=== PATIENT | female | born 1995 | race Caucasian/White ===

== ENCOUNTER 2017-02-12 12:51 | Emergency (ER) | payer OTHER ==
[2017-02-12 12:57] VITALS: BP 117/84
[2017-02-12] MEDS ORDERED: Ibuprofen TAB* 600 MG PO ONE (13:39)
[2017-02-12] MEDS ORDERED: Sulfamethox/Trimethoprim DS 800/160* TAB PO ONE (13:39)
--- NOTE | 2017-02-12 18:47 | ED ---
Tapan Hernandez Auryana, scribed for Jose Duque MD on 02/12/17 at 1314 . Skin Complaint - HPI Summary HPI Summary: 21 year old female presents to the ED with CC of multiple abscess in the right axilla. She reports that she first noticed them little over 1 week ago and they have gotten progressively worse - erythema, and increase in size without coming to a head. She denies any fever and chills. PMHx is not significant for MRSA. SHx is significant for tobacco but denies any alcohol or drug use. - History of Current Complaint Chief Complaint: EDRashSkinAbscess Time Seen by Provider: 02/12/17 13:04 Stated Complaint: ABSCESS Hx Obtained From: Patient Hx Last Menstrual Period: 05/23/15 Onset/Duration: Started Weeks Ago - little over 1 week ago, Still Present, Worse Since - progressively worse Skin Exposure Onset/Duration: Weeks Ago Timing: Constant Onset Severity: Moderate Current Severity: Moderate Pain Intensity: 6 Pain Scale Used: 0-10 Numeric Skin Location: Discrete, Other: - armpit Character: Swelling, Pain, Redness Associated Signs & Symptoms: Negative - no fever or chills - Allergy/Home Medications Allergies/Adverse Reactions: Allergies Allergy/AdvReac Type Severity Reaction Status Date / Time Penicillins Allergy Severe Difficulty Verified 02/12/17 12:54 Breathing,hives PMH/Surg Hx/FS Hx/Imm Hx Previously Healthy: No - cold sores Endocrine/Hematology History: Denies: Hx Diabetes, Hx Thyroid Disease Cardiovascular History: Denies: Hx Hypertension Respiratory History: Reports: Hx Pneumonia - 2 YEARS AGO Denies: Hx Asthma, Hx Chronic Obstructive Pulmonary Disease (COPD) GI History: Denies: Hx Ulcer Sensory History: Reports: Hx Contacts or Glasses Opthamlomology History: Reports: Hx Contacts or Glasses Psychiatric History: Reports: Hx Anxiety, Hx Depression - was taking zoloft, disc. managed by PCP Infectious Disease History: No Infectious Disease History: Denies: Hx Clostridium Difficile, Hx Hepatitis, Hx Human Immunodeficiency Virus (HIV), Hx of Known/Suspected MRSA, Hx Shingles, Hx Tuberculosis, Hx Known/ Suspected VRE, Hx Known/Suspected VRSA, History Other Infectious Disease, Traveled Outside the [place] in Last 30 Days - Family History Known Family History: Positive: Other - mother - history of strep throat Negative: Cardiac Disease Family History: no cardio vascular issues in family lineage - Social History Occupation: Student Lives: With Family Alcohol Use: Occasionally Substance Use Type: Reports: Prescribed Substance Use Comment - Amount & Last Used: 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 GENERAL: Patient is a well-developed and nourished (MALE OR FEMALE) who is lying comfortable in the stretcher. Patient is not in any acute respiratory distress. HEAD AND FACE: No signs of trauma. No ecchymosis, hematomas or skull depressions. No sinus tenderness. EYES: PERRLA, EOMI x 2, No injected conjunctiva, no nystagmus. EARS: Hearing grossly intact. Ear canals and tympanic membranes are within normal limits. MOUTH: Oropharynx within normal limits. NECK: Supple, trachea is midline, no adenopathy, no JVD, no carotid bruit, no c- spine tenderness, neck with full ROM. CHEST: Symmetric, no tenderness at palpation LUNGS: Clear to auscultation bilaterally. No wheezing or crackles. CVS: Regular rate and rhythm, S1 and S2 present, no murmurs or gallops appreciated. ABDOMEN: Soft, non-tender. No signs of distention. No rebound no guarding, and no masses palpated. Bowel sounds are normal. EXTREMITIES: FROM in all major joints, no edema, no cyanosis or clubbing. NEURO: Alert and oriented x 3. No acute neurological deficits. Speech is normal and follows commands. SKIN: Dry and warm, 3 abscesses in the left axilla. Triage Information Reviewed: Yes Vital Signs On Initial Exam: Initial Vitals Temp Pulse Resp BP Pulse Ox 98.6 F 124 18 117/84 6 02/12/17 12:54 02/12/17 12:54 02/12/17 12:54 02/12/17 12:54 02/12/17 12:54 Vital Signs Reviewed: Yes Procedures - Procedure Summary Procedure Summary: 3x Incision and drainage - purulent discharge removed. Packed 3 abscesses with gauze. Patient was given ibuprofen and Bactrim, discharge and follow up with PCP or ED for wound check. - Incision and Drainage Site: left axilla x3 abscesses Anesthesia: Lidocaine - without epi Instrument(s): Other - 11 blade Packing: Gauze Diagnostics - Vital Signs Vital Signs Temp Pulse Resp BP Pulse Ox 02/12/17 12:54 98.6 F 124 18 117/84 6 - Laboratory Lab Statement: Any lab studies that have been ordered have been reviewed, and results considered in the medical decision making process. Course/Dx - Course Course Of Treatment: 21 year old female presents to the ED with CC of multiple abscess in the right axilla. She reports that she first noticed them little over 1 week ago and they have gotten progressively worse - erythema, and increase in size without coming to a head. She denies any fever and chills. PMHx is not significant for MRSA. SHx is significant for tobacco but denies any alcohol or drug use. Assessment/Plan: I&D of 3 abscess at the elft axilla, see MD note. patient was given 1 ibuprofen and bactrim in ED. Patient will be discharge and follow up with PCP or return to for wound check. Given Rx for bactrim and ibuprofen. - Differential Diagnoses - Skin Complaint Differential Diagnoses: Abscess - Diagnoses Provider Diagnoses: Abscess, Cellulitis Discharge - Discharge Plan Condition: Stable Disposition: HOME Prescriptions: Ibuprofen TAB* [Motrin TAB* 600 MG] 600 mg PO Q8H PRN #20 tab PRN Reason: Pain Sulfamethox/Trimethoprim DS* [Bactrim DS 800/160 TAB*] 1 tab PO BID #9 tab Patient Education Materials: Cellulitis (ED), Abscess (ED) Referrals: Salty Sierra MD [Primary Care Provider] - 2 Days (PLEASE FOLLOW UP WITH PCP OR THE EMERGENCY ROOM FOR WOUND CHECK IN 2 DAYS.) The documentation as recorded by the Tapan molina Auryana accurately reflects the service I personally performed and the decisions made by , Jose Duque MD.
--- NOTE | 2017-02-14 16:30 | PN ---
Progress Note - Progress Note Note: Wound culture grew staph aureus. Patient placed on bactrim, Will await sensitivities. Nothing further at this time.
== END 2017-02-12 13:54 | disposition home or self-care (01) ==
LOC: ED 12:51
DX: L02.412 Cutaneous abscess of left axilla (principal); F17.210 Nicotine dependence, cigarettes, uncomplicated
CPT/HCPCS: 10060; 87070; 87077; 87186; 87205; 99282; A9270-GY

== ENCOUNTER 2017-02-14 19:44 | Emergency (ER) | payer OTHER ==
[2017-02-14 20:53] VITALS: BP 135/96
--- NOTE | 2017-02-15 09:08 | PN ---
Progress Note - Progress Note Note: Placed on bactrim which finally cultures shows is sensitive to. no further action needed.
--- NOTE | 2017-02-16 07:39 | ED ---
Daniel Hernandez Alok, scribed for Mirza Slade MD on 02/14/17 at 2043 . ED Suture/Wound Check - HPI Summary HPI Summary: 21F presents to ED to re-check her abscess related wound on her right axilla. Two days ago pt had 3 abscess at the right axilla drained at ED, as well as was prescribed Bactrim. Her wounds appear well-healing and clean. - History Of Current Complaint Chief Complaint: EDRashSkinAbscess Stated Complaint: ABSESS UNDER RT ARM Time Seen by Provider: 02/14/17 20:32 Hx Obtained From: Patient Onset/Duration: Lasting Days, Still Present Severity: Moderate Pain Intensity: 3 Pain Scale Used: 0-10 Numeric Procedure Type: I&D 2 days ago - Allergies/Home Medications Allergies/Adverse Reactions: Allergies Allergy/AdvReac Type Severity Reaction Status Date / Time Penicillins Allergy Severe Difficulty Verified 02/14/17 19:52 Breathing,hives PMH/Surg Hx/FS Hx/Imm Hx Endocrine/Hematology History: Denies: Hx Diabetes, Hx Thyroid Disease Cardiovascular History: Denies: Hx Hypertension Respiratory History: Reports: Hx Pneumonia - 2 YEARS AGO Denies: Hx Asthma, Hx Chronic Obstructive Pulmonary Disease (COPD) GI History: Denies: Hx Ulcer Sensory History: Reports: Hx Contacts or Glasses Opthamlomology History: Reports: Hx Contacts or Glasses Psychiatric History: Reports: Hx Anxiety, Hx Depression - was taking zoloft, disc. managed by PCP Infectious Disease History: No Infectious Disease History: Denies: Hx Clostridium Difficile, Hx Hepatitis, Hx Human Immunodeficiency Virus (HIV), Hx of Known/Suspected MRSA, Hx Shingles, Hx Tuberculosis, Hx Known/ Suspected VRE, Hx Known/Suspected VRSA, History Other Infectious Disease, Traveled Outside the [place] in Last 30 Days - Family History Known Family History: Positive: Other - mother - history of strep throat Negative: Cardiac Disease Family History: no cardio vascular issues in family lineage - Social History Occupation: Student Alcohol Use: Occasionally Substance Use Type: Reports: Prescribed Substance Use Comment - Amount & Last Used: 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 Smoking Status (MU): Light Every Day Tobacco Smoker Have You Smoked in the Last Year: No Review of Systems Negative: Fever Positive: Other - abscess right axilla x3 All Other Systems Reviewed And Are Negative: Yes Physical Exam Triage Information Reviewed: Yes Vital Signs On Initial Exam: Initial Vitals Temp Pulse Resp BP Pulse Ox 97.9 F 105 16 128/80 100 02/14/17 19:45 02/14/17 19:45 02/14/17 19:45 02/14/17 19:45 02/14/17 19:45 Vital Signs Reviewed: Yes Appearance: Positive: Well-Appearing, No Pain Distress Skin: Positive: Other - 3 well-healing, open abscesses, clean at right axilla Head/Face: Positive: Normal Head/Face Inspection Eyes: Positive: Normal ENT: Positive: Normal ENT inspection Neck: Positive: Supple, Nontender Respiratory/Lung Sounds: Positive: Clear to Auscultation, Breath Sounds Present Cardiovascular: Positive: RRR Abdomen Description: Positive: Nontender, Soft Bowel Sounds: Positive: Present Musculoskeletal: Positive: Normal Neurological: Positive: Normal Psychiatric: Positive: Normal, Affect/Mood Appropriate Diagnostics - Vital Signs Vital Signs Temp Pulse Resp BP Pulse Ox 02/14/17 19:50 97.9 F 105 16 128/80 100 02/14/17 19:45 97.9 F 105 16 128/80 100 - Laboratory Lab Statement: Any lab studies that have been ordered have been reviewed, and results considered in the medical decision making process. Course/Dx - Course Course Of Treatment: Ms. Ren's would looked very good. There was still packing in one which was dry and she removed it. - Clinical Impression Provider Diagnoses: Encounter for wound re-check Discharge - Discharge Plan Condition: Stable Disposition: HOME Patient Education Materials: Abscess (ED) Referrals: Salty Sierra MD [Primary Care Provider] - Additional Instructions: Please continue taking your Bactrim The documentation as recorded by the Daniel molina Alok accurately reflects the service I personally performed and the decisions made by me, Mirza Slade MD.
== END 2017-02-14 20:52 | disposition home or self-care (01) ==
LOC: ED 19:44
DX: L02.411 Cutaneous abscess of right axilla (principal); F17.210 Nicotine dependence, cigarettes, uncomplicated
CPT/HCPCS: 99281

== ENCOUNTER 2017-08-24 15:06 | Emergency (ER) | payer OTHER ==
[2017-08-24 15:34] VITALS: BP 112/64
--- NOTE | 2017-08-24 16:47 | UC ---
Skin Complaint HPI - HPI Summary HPI Summary: FIVE DAYS OF SMALL ABSCESS LEFT (ANTERIOR) SHOULDER NEAR ARMPIT. TODAY PATIENT POPPED IT AND A LITTLE PUS CAME OUT. HISTORY OF SAME IN THE PAST. FEVER. NO HISTORY OF MRSA. - History of Current Complaint Chief Complaint: UCSkin Time Seen by Provider: 08/24/17 15:55 Stated Complaint: SOFT TISSUE COMPLAINT Hx Obtained From: Patient Hx Last Menstrual Period: states has IUD in place Onset/Duration: Gradual Onset, Lasting Days, Still Present Skin Exposure Onset/Duration: Days Ago Onset Severity: Mild Current Severity: Mild Pain Intensity: 4 Pain Scale Used: 0-10 Numeric Location: Discrete - LEFT SHOULDER Character: Swelling, Redness, Raised Aggravating Factor(s): Touch Alleviating Factor(s): Nothing Associated Signs & Symptoms: Positive: Drainage, Tenderness Related History: Insect Bite/Sting, Possible Reaction to: Environmental Exposure - Allergy/Home Medications Allergies/Adverse Reactions: Allergies Allergy/AdvReac Type Severity Reaction Status Date / Time Penicillins Allergy Severe Difficulty Verified 08/24/17 15:26 Breathing,hives Home Medications: Home Medications Ibuprofen [Ibuprofen 200 MG] 400 mg PO ONCE 08/24/17 [History Confirmed 08/24/17 ] Review of Systems Constitutional: Negative Skin: Other - SMALL 0.5CM X 0.5CM INDURATED ABSCESS LEFT SHOULDER WITH SURROUNDING ERYTHEMA Eyes: Negative ENT: Negative Respiratory: Negative Cardiovascular: Negative Gastrointestinal: Negative Genitourinary: Negative Motor: Negative Neurovascular: Negative Musculoskeletal: Negative Neurological: Negative Psychological: Negative Is Patient Immunocompromised?: No All Other Systems Reviewed And Are Negative: Yes PMH/Surg Hx/FS Hx/Imm Hx Previously Healthy: Yes - Surgical History Surgical History: None - Family History Known Family History: Positive: None, Other - mother - history of strep throat Negative: Cardiac Disease Family History: no cardio vascular issues in family lineage - Social History Occupation: Unemployed - AT [employer] CURRENTLY Lives: With Family Alcohol Use: None Substance Use Type: Heroin, Prescribed Substance Use Comment - Amount & Last Used: pt from [facility] - entered rehab today. Smoking Status (MU): Light Every Day Tobacco Smoker Amount Used/How Often: 1/2 PPD Have You Smoked in the Last Year: No - Immunization History Most Recent Influenza Vaccination: 2014 Most Recent Tetanus Shot: 2014 Most Recent Pneumonia Vaccination: na Vaccination Up to Date: Yes Physical Exam Triage Information Reviewed: Yes Appearance: Well-Appearing, No Pain Distress, Well-Nourished, Thin Vital Signs: Initial Vital Signs Temp 100.1 F 08/24/17 15:27 Pulse 97 08/24/17 15:27 Resp 18 08/24/17 15:27 BP 112/64 08/24/17 15:27 Pulse Ox 100 08/24/17 15:27 Vital Signs Reviewed: Yes Eye Exam: Normal ENT Exam: Normal ENT: Positive: Normal ENT inspection, Hearing grossly normal, Pharynx normal Dental Exam: Normal Neck exam: Normal Neck: Positive: Supple, Nontender, No Lymphadenopathy Respiratory Exam: Normal Respiratory: Positive: Chest non-tender, Lungs clear, Normal breath sounds, No respiratory distress, No accessory muscle use Cardiovascular Exam: Normal Cardiovascular: Positive: RRR, No Murmur, Pulses Normal Abdominal Exam: Normal Abdomen Description: Positive: Nontender, No Organomegaly Musculoskeletal Exam: Normal Musculoskeletal: Positive: Strength Intact, ROM Intact, No Edema Neurological Exam: Normal Psychological Exam: Normal Skin: Positive: Other - SMALL 0.5CM X 0.5CM INDURATED ABSCESS LEFT SHOULDER WITH SURROUNDING ERYTHEMA Course/Dx - Differential Diagnoses - Skin Complaint Differential Diagnoses: Abscess, Cellulitis - Diagnoses Provider Diagnoses: ABSCESS LEFT SHOULDER Discharge - Discharge Plan Condition: Stable Disposition: HOME Prescriptions: Sulfamethox/Trimethoprim DS* [Bactrim DS 800/160 TAB*] 1 tab PO BID #20 tab Patient Education Materials: Abscess (ED) Referrals: Salty Sierra MD [Primary Care Provider] - Images Front/Back of Body, Lg ([place]): 1 - SMALL 0.5CM X 0.5CM INDURATED ABSCESS LEFT SHOULDER WITH SURROUNDING ERYTHEMA
== END 2017-08-24 16:33 | disposition home or self-care (01) ==
LOC: UCEAST 15:06
DX: L02.414 Cutaneous abscess of left upper limb (principal); B95.62 Methicillin resistant Staphylococcus aureus infection as the cause of diseases classified elsewhere; Z88.0 Allergy status to penicillin; F17.210 Nicotine dependence, cigarettes, uncomplicated
CPT/HCPCS: 87070; 87077; 87186; 87205; 87640; 87641; 99212; G0463

== ENCOUNTER 2017-12-10 21:22 | Emergency (ER) | payer OTHER ==
[2017-12-10 22:29] LABS: Hematocrit 38 % (35-47); Hemoglobin 12.6 g/dl (12.0-16.0); Mean Corpuscular HGB Conc 34 g/dl (31-36); Mean Corpuscular Hemoglobin 29 pg (27-31); Mean Corpuscular Volume 86 fL (80-97); Mean Platelet Volume 7.7 um3 (7.4-10.4); Platelet Count 262 10^3/ul (150-450); Red Blood Count 4.35 10^6/ul (4.0-5.4); Red Cell Distribution Width 14 % (10.5-15); White Blood Count 13.8 10^3/ul (3.5-10.8)
[2017-12-10 22:33] LABS: Urine Appearance Cloudy; Urine Blood 3+ (Negative); Urine Color Yellow; Urine Ketones Negative (Negative); Urine Protein 1+(30 mg/dL) (Negative); Urine Urobilinogen Negative (Negative)
[2017-12-10] MEDS ORDERED: Ciprofloxacin 400MG IVPREMIX(* 400 MG/200 ML BAG IVPB ONE (22:36)
[2017-12-10 22:47] LABS: EGFR Non-African American 82.5 (>60)
[2017-12-10 22:49] LABS: ABS Basophils 0.1 10^3/ul (0-0.2); ABS Eosinophils 0 10^3/ul (0-0.6); ABS Lymphocytes 2.6 10^3/ul (1.0-4.8); ABS Monocytes 1.6 10^3/ul (0-0.8); ABS Neutrophils 9.4 10^3/ul (1.5-7.7); ABS Nucleated RBC 0 10^3/ul; Eosinophil % 0.3 % (0-6); Lymphocyte % 19.1 % (25-47); Nucleated Red Blood Cells % 0.1
--- NOTE | 2017-12-10 22:54 | ED ---
GI/ HPI - HPI Summary HPI Summary: 22-year-old female presents with frequency and flank pain for the past couple days. She states she may have a UTI. She denies any pain urination. Denies any vaginal discharge. States she does have an IUD in place. She states that the pain causes her to become short of breath. She denies any chest pain. She states the pain started in the right flank and now is radiating to the front of her abdomen. She's never had this pain before. She denies any previous abdominal surgeries. She hasn't taking anything for pain. She is to nausea but denies any vomiting. She denies any diarrhea constipation. - History of Current Complaint Chief Complaint: EDFlankPain Time Seen by Provider: 12/10/17 21:42 Stated Complaint: FLANK PAIN Hx Last Menstrual Period: states has IUD in place Pain Intensity: 6 - Allergy/Home Medications Allergies/Adverse Reactions: Allergies Allergy/AdvReac Type Severity Reaction Status Date / Time Penicillins Allergy Anaphylatic Verified 12/10/17 23:56 Shock PMH/Surg Hx/FS Hx/Imm Hx Endocrine/Hematology History: Denies: Hx Diabetes, Hx Thyroid Disease Cardiovascular History: Denies: Hx Hypertension Respiratory History: Reports: Hx Pneumonia - 2 YEARS AGO Denies: Hx Asthma, Hx Chronic Obstructive Pulmonary Disease (COPD) GI History: Denies: Hx Ulcer Sensory History: Reports: Hx Contacts or Glasses Opthamlomology History: Reports: Hx Contacts or Glasses Psychiatric History: Reports: Hx Anxiety, Hx Depression - was taking zoloft, disc. managed by PCP Infectious Disease History: No Infectious Disease History: Denies: Hx Clostridium Difficile, Hx Hepatitis, Hx Human Immunodeficiency Virus (HIV), Hx of Known/Suspected MRSA, Hx Shingles, Hx Tuberculosis, Hx Known/ Suspected VRE, Hx Known/Suspected VRSA, History Other Infectious Disease, Traveled Outside the [place] in Last 30 Days - Family History Known Family History: Positive: None, Other - mother - history of strep throat Negative: Cardiac Disease Family History: no cardio vascular issues in family lineage - Social History Alcohol Use: None Substance Use Type: Reports: Heroin, Prescribed Substance Use Comment - Amount & Last Used: states clean since July 2017 Smoking Status (MU): Light Every Day Tobacco Smoker Amount Used/How Often: 1/2 PPD Have You Smoked in the Last Year: No Review of Systems Negative: Fever Negative: Chest Pain Negative: Shortness Of Breath Positive: Abdominal Pain, Nausea. Negative: Vomiting Positive: frequency, flank pain All Other Systems Reviewed And Are Negative: Yes Physical Exam Triage Information Reviewed: Yes Vital Signs On Initial Exam: Initial Vitals Temp Pulse Resp BP Pulse Ox 97.5 F 97 18 119/70 98 12/10/17 21:25 12/10/17 21:25 12/10/17 21:25 12/10/17 21:25 12/10/17 21:25 Vital Signs Reviewed: Yes Appearance: Positive: Well-Appearing Skin: Positive: Warm, Dry Head/Face: Positive: Normal Head/Face Inspection Eyes: Positive: Normal, EOMI, MERRITT, Conjunctiva Clear ENT: Positive: Normal ENT inspection, Pharynx normal, TMs normal Respiratory/Lung Sounds: Positive: Clear to Auscultation, Breath Sounds Present Cardiovascular: Positive: Normal, RRR Abdomen Description: Positive: Soft, CVA Tenderness (R), Other: - mild tenderness suprapubic. Negative: [place]'s Point Tenderness Bowel Sounds: Positive: Present Musculoskeletal: Positive: Normal Neurological: Positive: Normal Psychiatric: Positive: Normal Diagnostics - Vital Signs Vital Signs Temp Pulse Resp BP Pulse Ox 12/10/17 21:25 97.5 F 97 18 119/70 98 - Laboratory Lab Results: Lab Results 12/10/17 12/10/17 12/10/17 Range/Units 22:20 22:20 22:22 WBC 13.8 H (3.5-10.8) 10^3/ul RBC 4.35 (4.0-5.4) 10^6/ul Hgb 12.6 (12.0-16.0) g/dl Hct 38 (35-47) % MCV 86 (80-97) fL MCH 29 (27-31) pg MCHC 34 (31-36) g/dl RDW 14 (10.5-15) % Plt Count 262 (150-450) 10^3/ul MPV 7.7 (7.4-10.4) um3 Neut % (Auto) 68.2 (38-83) % Lymph % (Auto) 19.1 L (25-47) % [place] % (Auto) 11.9 H (0-7) % Eos % (Auto) 0.3 (0-6) % Baso % (Auto) 0.5 (0-2) % Absolute Neuts (auto) 9.4 H (1.5-7.7) 10^3/ul Absolute Lymphs (auto) 2.6 (1.0-4.8) 10^3/ul Absolute Monos (auto) 1.6 H (0-0.8) 10^3/ul Absolute Eos (auto) 0 (0-0.6) 10^3/ul Absolute Basos (auto) 0.1 (0-0.2) 10^3/ul Absolute Nucleated RBC 0 10^3/ul Nucleated RBC % 0.1 Sodium 133 (133-145) mmol/L Potassium 3.9 (3.5-5.0) mmol/L Chloride 99 L (101-111) mmol/L Carbon Dioxide 26 (22-32) mmol/L Anion Gap 8 (2-11) mmol/L BUN 14 (6-24) mg/dL Creatinine 0.86 (0.51-0.95) mg/dL Est GFR ( Amer) 106.1 (>60) Est GFR (Non-Af Amer) 82.5 (>60) BUN/Creatinine Ratio 16.3 (8-20) Glucose 102 H (70-100) mg/dL Calcium 9.1 (8.6-10.3) mg/dL Total Bilirubin 0.60 (0.2-1.0) mg/dL AST 32 (13-39) U/L ALT 35 (7-52) U/L Alkaline Phosphatase 89 (34-104) U/L C-React Prot High Sens Pending Total Protein 7.5 (6.4-8.9) g/dL Albumin 3.4 (3.2-5.2) g/dL Globulin 4.1 H (2-4) g/dL Albumin/Globulin Ratio 0.8 L (1-3) Lipase 22 (11.0-82.0) U/L Beta HCG, Quant Pending Urine Color Yellow Urine Appearance Cloudy Urine pH 6.0 (5-9) Ur Specific [place] 1.010 (1.010-1.030) Urine Protein 1+(30 mg/dl) A (Negative) Urine Ketones Negative (Negative) Urine Blood 3+ A (Negative) Urine Nitrate Negative (Negative) Urine Bilirubin Negative (Negative) Urine Urobilinogen Negative (Negative) Ur Leukocyte Esterase 3+ A (Negative) Urine WBC (Auto) 3+(>20/hpf) A (Absent) Urine RBC (Auto) 3+(>10/hpf) A (Absent) Ur Squamous Epith Cells Present A (Absent) Amorphous Crystals Present A (Absent) Urine Bacteria 3+ A (Absent) Urine Glucose Negative (Negative) Result Diagrams: 12/10/17 22:20 12/10/17 22:20 Lab Statement: Any lab studies that have been ordered have been reviewed, and results considered in the medical decision making process. - CT cta CT Interpretation: Positive (See Comments) - right renal inflammation, no PE CT Interpretation Completed By: Radiologist - Ultrasound No standard instances Ultrasound Interpretation: No Acute Changes Ultrasound Interpretation Completed By: Radiologist ELIZABETHU Course/Dx - Course Course Of Treatment: 22-year-old female presents with frequency and flank pain for the past couple days. She states she may have a UTI. She denies any pain urination. Denies any vaginal discharge. States she does have an IUD in place. She states that the pain causes her to become short of breath. She denies any chest pain. She states the pain started in the right flank and now is radiating to the front of her abdomen. She's never had this pain before. She denies any previous abdominal surgeries. She hasn't taking anything for pain. She is to nausea but denies any vomiting. She denies any diarrhea constipation. On exam tenderness suprapubic and right CVA tenderness. Labs white count 13. Urine shows UTI. We'll treat with Cipro. d-dimer elevated so will get CT. renal u/s normal. CTA shows no PE but does show pyelo. will discharge with zofran and cipro. patient understand and agrees with plan. - Diagnoses Differential Diagnoses - Female: Pyelonephritis, Urinary Tract Infection, Ureteral Calculi, Other - PE Provider Diagnoses: Pyelonephritis Discharge - Sign-Out/Discharge Documenting (check all that apply): Discharge - Discharge Plan Condition: Good Disposition: HOME Prescriptions: Ciprofloxacin TAB* [Cipro 500 MG TAB*] 500 mg PO BID #27 tab Ondansetron ODT TAB* [Zofran 4 MG Odt TAB*] 4 mg PO Q6H PRN #16 tab.odt PRN Reason: Nausea Patient Education Materials: Kidney Infection (ED) Referrals: Salty Sierra MD [Primary Care Provider] - Additional Instructions: Take antibiotic twice a day for 14 days, starting tomorrow Use Zofran every 6 hours for nausea as needed Drink plenty of water Use alternative form of control Take Tylenol or ibuprofen every 6 hours as needed for pain and fever Return to ED if develop severe vomiting, or any new or worsening symptoms - Billing Disposition and Condition Condition: GOOD Disposition: HOME
[2017-12-10] MEDS ORDERED: Iohexol 350* (CONTRAST) 500 ML MDV IV ONE (23:18)
[2017-12-11] MEDS ORDERED: O ndansetron ODT 4MG 2TAB PRPK 4 MG PAK PO ONE (01:05)
[2017-12-11 01:22] VITALS: BP 121/84
--- NOTE | 2017-12-11 07:51 | RAD ---
HISTORY: Right flank pain COMPARISONS: None TECHNIQUE: Multiple transverse and longitudinal ultrasound images were obtained of the right kidney using grayscale and color Doppler imaging. FINDINGS: RIGHT KIDNEY: The right kidney is normal in shape, size, contour, and echogenicity. There is no hydronephrosis or nephrolithiasis. The right kidney measures 13.7 x 6.4 x 5.7 cm. LEFT KIDNEY: No images is noted of the left kidney. BLADDER: No images are submitted of the bladder. AORTA AND IVC: No images are submitted of the vasculature. RETROPERITONEUM: Unremarkable. OTHER: None. IMPRESSION: NO RIGHT HYDRONEPHROSIS OR NEPHROLITHIASIS
--- NOTE | 2017-12-11 07:59 | RAD ---
HISTORY: Shortness of breath, right flank pain COMPARISONS: None TECHNIQUE: Multiple contiguous axial CT scans were obtained of the chest, abdomen, and pelvis after the administration of intravenous contrast. Coronal and sagittal multiplanar reformations are submitted for review.. Oral contrast was not administered. Delayed images were obtained through the abdomen and pelvis. FINDINGS: CHEST NECK AND THYROID: The lower neck and thyroid are unremarkable. CHEST WALL: There is no lower cervical, axillary, or supraclavicular lymphadenopathy by size criteria. HEART AND PERICARDIUM: The heart is unremarkable. AORTA AND PULMONARY VASCULATURE: There is no pulmonary arterial filling defect to suggest pulmonary embolism. The aorta is normal for technique. MEDIASTINUM: There is no mediastinal lymphadenopathy by size criteria. KHANH: There is no hilar lymphadenopathy by size criteria. AIRWAY AND ESOPHAGUS: The airway is unremarkable, without endobronchial filling defect. The esophagus is grossly normal. LUNG PARENCHYMA: The lungs are clear. PLEURA: No pleural abnormalities are noted. BONES AND SOFT TISSUES: No bone or soft tissue abnormalities are noted. ABDOMEN/PELVIS: LIVER: Liver measures 19 cm in long axis. There are no focal hepatic parenchymal masses. BILE DUCTS: There is no intrahepatic or extrahepatic biliary dilatation. GALLBLADDER: The gallbladder is incompletely distended but is grossly normal. PANCREAS: The pancreas is normal, without mass or ductal dilatation. SPLEEN: Normal in size and appearance. UPPER GI TRACT: Evaluation of the gastrointestinal tract is limited by incomplete gastric distention. The upper GI tract is unremarkable. SMALL BOWEL & MESENTERY: The small bowel is normal in contour, course, and caliber. There is no obstruction or dilatation. COLON: The colon is normal in contour, course, caliber. There is no pericolonic inflammatory change. There is large amount of stool throughout the colon. The appendix is not well-visualized. There is no appreciable inflammatory change within the right lower quadrant. ADRENALS: Normal bilaterally. KIDNEYS: There is a heterogeneous pattern of enhancement within the medial right kidney with mild stranding of the perinephric fat on the right. There is no hydronephrosis or nephrolithiasis. BLADDER: The bladder is smooth in contour. PELVIC ORGANS: An IUD is noted. The uterus is retroverted. AORTA: The aorta is normal. IVC: Unremarkable LYMPH NODES: There is no lymphadenopathy by size criteria. ABDOMINAL WALL: There is no evidence for abdominal wall hernia. BONES AND SOFT TISSUES: Unremarkable OTHER: None IMPRESSION: 1. RIGHT PYELONEPHRITIS. 2. NO PULMONARY ARTERIAL FILLING DEFECT TO SUGGEST PULMONARY EMBOLISM.
--- NOTE | 2017-12-13 09:35 | ED ---
Progress - Progress Note Progress Note: Patient's preliminary urine culture reveals greater than 100,000 Escherichia coli. Patient was started on ciprofloxacin. Final sensitivities pending. Course/Dx - Course Course Of Treatment: 22-year-old female presents with frequency and flank pain for the past couple days. She states she may have a UTI. She denies any pain urination. Denies any vaginal discharge. States she does have an IUD in place. She states that the pain causes her to become short of breath. She denies any chest pain. She states the pain started in the right flank and now is radiating to the front of her abdomen. She's never had this pain before. She denies any previous abdominal surgeries. She hasn't taking anything for pain. She is to nausea but denies any vomiting. She denies any diarrhea constipation. On exam tenderness suprapubic and right CVA tenderness. Labs white count 13. Urine shows UTI. We'll treat with Cipro. d-dimer elevated so will get CT. renal u/s normal. CTA shows no PE but does show pyelo. will discharge with zofran and cipro. patient understand and agrees with plan. - Diagnoses Provider Diagnoses: Pyelonephritis Discharge - Sign-Out/Discharge Documenting (check all that apply): Post-Discharge Follow Up - Discharge Plan Condition: Good Disposition: HOME Prescriptions: Ciprofloxacin TAB* [Cipro 500 MG TAB*] 500 mg PO BID #27 tab Ondansetron ODT TAB* [Zofran 4 MG Odt TAB*] 4 mg PO Q6H PRN #16 tab.odt PRN Reason: Nausea Patient Education Materials: Kidney Infection (ED) Referrals: Salty Sierra MD [Primary Care Provider] - Additional Instructions: Take antibiotic twice a day for 14 days, starting tomorrow Use Zofran every 6 hours for nausea as needed Drink plenty of water Use alternative form of control Take Tylenol or ibuprofen every 6 hours as needed for pain and fever Return to ED if develop severe vomiting, or any new or worsening symptoms - Billing Disposition and Condition Condition: GOOD Disposition: HOME
== END 2017-12-11 01:21 | disposition home or self-care (01) ==
LOC: ED 21:22
DX: N12 Tubulo-interstitial nephritis, not specified as acute or chronic (principal); R10.84 Generalized abdominal pain; R11.0 Nausea; F17.210 Nicotine dependence, cigarettes, uncomplicated
CPT/HCPCS: 36415; 71275; 74177; 76775; 80053; 81003; 81015; 83690; 84702; 85025; 85379; 86141; 87077; 87086; 87186; 96365; 99282; A9270-GY; J0744; Q9967

== ENCOUNTER 2018-07-18 09:37 | Emergency (ER) | payer OTHER ==
--- OUTSIDE RECORDS SUMMARY | 2018-07-18 09:49 | XMS REPORT ---
:1995 External Reference #:[id number] Author Organization [facility] Address [address], [address] [place] [address] Phone [phone] Care Team Providers Name Role Phone Amina Quintanilla PA-C Care Team Information Avionics Installer Unavailable Amina Quintanilla PA-C Primary Care Physician Unavailable Payers Type Date Identification Numbers Payment Provider Subscriber Commercial Policy Number: [id number] Kong Ren PayID: [id number] [address] [address] [place] [address] Problems Date Description Provider Status Onset: 06/14/2018 Disorder of bursa of shoulder region Shu Mojica PA Active Social History Type Date Description Comments Lives With Alone Occupation Unemployed Hand Dominance Left-handed Cigarette Use currently smokes 1/2 Pack Daily ETOH Use Has consumed alcohol in the past Recreational Drug Use Former Drug User Smoking Heavy tobacco smoker (more than 10 cigarettes/day) Daily Caffeine Current Caffeine User Allergies, Adverse Reactions, Alerts Date Description Reaction Status Severity Comments 06/14/2018 Penicillin active Medications Medication Date Status Form Strength Qnty SIG Indications Ordering Provider Suboxone Active Film 12-3mg Place One Unknown 000 Film Under The Tongue Every Day Maximum Daily Dose [address] 60mg Take One Unknown 000 Part Capsule By Mouth Every Day Clonidine HCL Active Tablets 0.1mg Take One Unknown 000 Tablet By Mouth Twice A Day Trazodone HCL 0 Active Tablets 100mg Take 2 Unknown 000 Tablets By Mouth Nightly AT Bedtime as Needed Gabapentin Active Capsules 300mg 1 by mouth Unknown 000 every day Hydroxyzine Active Tablets 50mg 30tabs 1 tab by Unknown HCL 000 mouth at night as needed for anxiety and insomnia Bupropion HCL Active Tablets ER 150mg 30tabs 1 by mouth Unknown ER (XL) 000 24HR every day Fish Oil Active Capsules 1000mg 90caps by mouth Unknown 000 every day Dok Active Capsules 100mg 60caps take one Unknown 000 capsule by mouth twice a day as needed Doxepin HCL Active Capsules 10mg 30caps take one Unknown 000 at night Medications Administered in Office Medication Date Status Form Strength Qnty SIG Indications Ordering Provider Depomedrol 80 Administered Injection Yunior, mg 018 ILANA [place] Depomedrol 80 Administered Injection Yunior, mg 018 ILANA [place] Vital Signs Date Vital Result Comment 06/14/2018 BP Systolic 104 mmHg BP Diastolic 68 mmHg Body Temperature 98.2 F Heart Rate 84 /min Height 66 inches 5'6" Weight 150.00 lb BMI (Body Mass Index) 24.2 kg/m2 BSA (Body Surface Area) 1.77 m2 [place] body weight in kilograms 59 O2 % BldC Oximetry 99 % Pain Level 3 Results Description No Information Procedures Date CPT Code Description Status 06/14/2018 56923 Radiology, Shoulder: Two Views (Sso) Completed 06/14/2018 Asp./Injection major joint Completed 06/14/2018 Asp./Injection major joint Completed Encounters Type Date Location Provider CPT E/M Dx Office Visit 06/14/2018 11:15[place] [address] M25.512 M25.511 M75.52 M75.51 Plan of Care Future Appointment(s):07/26/2018 11:00 am - Shu Mojica PA at [id number]/14/2018 - Shu Mojica PAM25.512 Pain in left [id number] Pain in right shoulderFollow up:6wkM75.52 Bursitis of left shoulderNew Therapy: Physical/Occupational TherapyComments:I have recommended physical therapy as well as repeat steroid injection as she has done well with this in the past. Patient does wish to proceed. Verbal consent was obtained to inject both shoulders. Patient was injected today into the left shoulder with 80 mg Depo- Medrol and 4 cc of 1% lidocaine after sterile prep with chlorhexidine. Patient tolerated the injection well and was dressed with a Band-Aid. Patient was injected today into the right shoulder with 80 mg Depo-Medrol and 4 cc of 1% lidocaine after sterile prep with chlorhexidine. Patient tolerated the injection well and was dressed with a Band-Aid. Recheck 4-6 weeks.M75.51 Bursitis of right shoulderNew Therapy:Physical/Occupational Therapy
[2018-07-18 09:59] VITALS: BP 112/71
--- NOTE | 2018-07-18 10:50 | ED ---
Nausea/Vomiting/Diarrhea HPI - HPI Summary HPI Summary: 23-year-old female presents with 2 day history of nausea, vomiting, suprapubic discomfort, dysuria, and right flank pain. Associated with a subjective fever and chills. Last episode of vomiting was yesterday. Denies chest pain, palpitations, shortness of breath, diarrhea, or vaginal discharge. Patient does not have a routine menses secondary to Mirena. - History of Current Complaint Chief Complaint: UCGeneralIllness Stated Complaint: VOMITING,LOW FEVER Time Seen by Provider: 07/18/18 10:11 Hx Obtained From: Patient Hx Last Menstrual Period: unknown, Mirena ?: No Onset/Duration: Gradual Onset, Lasting Days - 2 Severity Currently: Mild Pain Intensity: 4 Character: Burning Aggravating Factor(s): Other: - With urination Alleviating Factor(s): Nothing Vomiting Characteristics: Nonbilious - Allergies/Home Medications Allergies/Adverse Reactions: Allergies Allergy/AdvReac Type Severity Reaction Status Date / Time Penicillins Allergy Anaphylatic Verified 07/18/18 09:53 Shock Home Medications: Home Medications Buprenorp/Nalox 8-2 MG SL TAB [Suboxone 8-2 mg SL TAB*] 10 mg SL DAILY 07/18/18 [History Confirmed 07/18/18] Gabapentin CAP(*) [Neurontin 300 CAP(*)] 300 mg PO TID 07/18/18 [History Confirmed 07/18/18] buPROPion SR TAB* [Wellbutrin SR TAB*] 150 mg PO DAILY 07/18/18 [History Confirmed 07/18/18] traZODone TAB* [Desyrel TAB*] 100 mg PO BEDTIME 07/18/18 [History Confirmed ] PMH/Surg Hx/FS Hx/Imm Hx Previously Healthy: Yes Endocrine/Hematology History: Denies: Hx Diabetes, Hx Thyroid Disease Cardiovascular History: Denies: Hx Hypertension Respiratory History: Reports: Hx Pneumonia - 2 YEARS AGO Denies: Hx Asthma, Hx Chronic Obstructive Pulmonary Disease (COPD) GI History: Denies: Hx Ulcer History: Denies: Hx Renal Disease Sensory History: Reports: Hx Contacts or Glasses Opthamlomology History: Reports: Hx Contacts or Glasses Psychiatric History: Reports: Hx Anxiety, Hx Depression - was taking zoloft, disc. managed by PCP, Hx Substance Abuse Infectious Disease History: No Infectious Disease History: Denies: Hx Clostridium Difficile, Hx Hepatitis, Hx Human Immunodeficiency Virus (HIV), Hx of Known/Suspected MRSA, Hx Shingles, Hx Tuberculosis, Hx Known/ Suspected VRE, Hx Known/Suspected VRSA, History Other Infectious Disease, Traveled Outside the [place] in Last 30 Days - Family History Known Family History: Positive: None, Other - mother - history of strep throat Negative: Cardiac Disease Family History: no cardio vascular issues in family lineage - Social History Alcohol Use: None Substance Use Type: Reports: Prescribed Substance Use Comment - Amount & Last Used: clean since december 30, 2017 Smoking Status (MU): Light Every Day Tobacco Smoker Type: Cigarettes Amount Used/How Often: 1/2 PPD Have You Smoked in the Last Year: No Review of Systems Positive: Fever, Chills ENT: Negative Cardiovascular: Negative Respiratory: Negative Positive: Abdominal Pain, Vomiting, Nausea Positive: burning, flank pain. Negative: discharge, frequency, hematuria, urgency All Other Systems Reviewed And Are Negative: Yes Physical Exam Triage Information Reviewed: Yes Vital Signs On Initial Exam: Initial Vitals Temp Pulse Resp BP Pulse Ox 97.7 F 84 14 112/71 98 07/18/18 09:50 07/18/18 09:50 07/18/18 09:50 07/18/18 09:50 07/18/18 09:50 Vital Signs Reviewed: Yes Appearance: Positive: No Pain Distress, Well-Nourished Skin: Positive: Warm, Skin Color Reflects Adequate Perfusion, Dry Respiratory/Lung Sounds: Positive: Clear to Auscultation, Breath Sounds Present Cardiovascular: Positive: RRR, S1, S2. Negative: Murmur Abdomen Description: Positive: No Organomegaly, Soft, CVA Tenderness (R), Other : - Mild suprapubic tenderness. Negative: CVA Tenderness (L), Distended, Guarding Bowel Sounds: Positive: Present Neurological: Positive: Alert, Oriented to Person Place, Time Psychiatric: Positive: Normal Diagnostics - Vital Signs Vital Signs Temp Pulse Resp BP Pulse Ox 07/18/18 09:50 97.7 F 84 14 112/71 98 - Laboratory Lab Results: Lab Results 07/18/18 07/18/18 Range/Units 10:08 10:15 POC Urine Color Bia POC Urine Clarity Clear POC Urine pH 6.0 (5-9) POC Ur Specif [place] 1.015 (1.010-1.030) POC Urine Protein 2+ A (Negative) POC Ur Glucose (UA) Negative (Negative) POC Urine Ketones Negative (Negative) POC Urine Blood 2+ A (Negative) POC Urine Nitrite Positive A (Negative) POC Urine Bilirubin 1+ A (Negative) POC Urine Urobilinogen 0.2 (Negative) POC U Leukocyte Esteras 2+ A (Negative) POC Ur Test Negative (Negative) Lab Statement: Any lab studies that have been ordered have been reviewed, and results considered in the medical decision making process. Naus/Vom/Diarrhea Course/Dx - Course Course Of Treatment: 23-year-old female with 2 day history of nausea, vomiting, suprapubic discomfort, dysuria associated with subjective fever and chills. Currently afebrile. Vital signs stable. Exam was notable for some suprapubic tenderness and right CVA tenderness. POC UA shows 2+ protein, 2+ blood, positive nitrite, 1+ urobilirubin, 2+ leukocytes. With reports of fever and right CVA tenderness suspect a pyelonephritis however cannot fully rule out nephrolithiasis. Will treat with ciprofloxacin 500 mg twice a day 5 days. Patient is to follow-up with her primary care provider in 5-7 days or sooner if symptoms do not improve. Warning symptoms were reviewed with the patient. Verbalizes understanding and agrees with plan of care. - Differential Dx/Diagnosis Differential Diagnoses - Female: Ectopic , Renal Colic, Urinary Tract Infection, Gastroenteritis (Viral), Cystitis, Renal Calculi Provider Diagnoses: right pyelonpehritis Condition At Discharge: Stable Discharge - Sign-Out/Discharge Documenting (check all that apply): Patient Departure All imaging exams completed and their final reports reviewed: No Studies - Discharge Plan Condition: Stable Disposition: HOME Prescriptions: Ciprofloxacin TAB* [Cipro 500 MG TAB*] 500 mg PO BID #10 tab Patient Education Materials: Kidney Infection (ED) Referrals: Amina Quintanilla PA [Primary Care Provider] - 7 Days (Follow up in 5-7 days. Sooner if symptoms do not improve.) Additional Instructions: Your urine test in the clinic today was suggestive of a urinary tract infection. Based on your history and exam I suspect you may have a kidney infection. We will send the urine for culture to see what bacteria grow out and to make sure that the antibiotic you were prescribed is effective against the bacteria. It typically takes 48-72 hours to get these results. Start ciprofloxacin 500 mg 1 tablet twice a day for 5 days. Make sure you're drinking plenty of fluids. Make sure you are using the bathroom frequently and emptying her bladder completely each time. Wipe from front to back to avoid introducing bacteria into the urinary tract. You should urinate immediately after any sexual intercourse. Follow-up with your primary care provider if your symptoms persist. Seek immediate medical attention in the emergency room if you develop a fever greater than 100.5 F, have severe abdominal pain, persistent vomiting, or any worsening of symptoms. - Billing Disposition and Condition Condition: STABLE Disposition: Home - Attestation Statements Provider Attestation: I was available for consult. This patient was seen by the GILBERTO. The patient was not presented to, seen by, or examined by me. -Kristi
--- NOTE | 2018-07-20 08:04 | ED ---
Progress - Progress Note Progress Note: Ucx- Ecoli>100k pt on cipro await cx Course/Dx - Course Course Of Treatment: 23-year-old female with 2 day history of nausea, vomiting, suprapubic discomfort, dysuria associated with subjective fever and chills. Currently afebrile. Vital signs stable. Exam was notable for some suprapubic tenderness and right CVA tenderness. POC UA shows 2+ protein, 2+ blood, positive nitrite, 1+ urobilirubin, 2+ leukocytes. With reports of fever and right CVA tenderness suspect a pyelonephritis however cannot fully rule out nephrolithiasis. Will treat with ciprofloxacin 500 mg twice a day 5 days. Patient is to follow-up with her primary care provider in 5-7 days or sooner if symptoms do not improve. Warning symptoms were reviewed with the patient. Verbalizes understanding and agrees with plan of care. Discharge - Sign-Out/Discharge Documenting (check all that apply): Patient Departure All imaging exams completed and their final reports reviewed: No Studies - Discharge Plan Condition: Stable Disposition: HOME Prescriptions: Ciprofloxacin TAB* [Cipro 500 MG TAB*] 500 mg PO BID #10 tab Patient Education Materials: Kidney Infection (ED) Referrals: Amina Quintanilla PA [Primary Care Provider] - 7 Days (Follow up in 5-7 days. Sooner if symptoms do not improve.) Additional Instructions: Your urine test in the clinic today was suggestive of a urinary tract infection. Based on your history and exam I suspect you may have a kidney infection. We will send the urine for culture to see what bacteria grow out and to make sure that the antibiotic you were prescribed is effective against the bacteria. It typically takes 48-72 hours to get these results. Start ciprofloxacin 500 mg 1 tablet twice a day for 5 days. Make sure you're drinking plenty of fluids. Make sure you are using the bathroom frequently and emptying her bladder completely each time. Wipe from front to back to avoid introducing bacteria into the urinary tract. You should urinate immediately after any sexual intercourse. Follow-up with your primary care provider if your symptoms persist. Seek immediate medical attention in the emergency room if you develop a fever greater than 100.5 F, have severe abdominal pain, persistent vomiting, or any worsening of symptoms. - Billing Disposition and Condition Condition: STABLE Disposition: Home
== END 2018-07-18 11:05 | disposition home or self-care (01) ==
LOC: UCCORT 09:37
DX: N12 Tubulo-interstitial nephritis, not specified as acute or chronic (principal); R50.9 Fever, unspecified; R11.2 Nausea with vomiting, unspecified; R30.0 Dysuria; F17.210 Nicotine dependence, cigarettes, uncomplicated; Z97.5 Presence of (intrauterine) contraceptive device; Z88.0 Allergy status to penicillin
CPT/HCPCS: 81003; 84702; 87077; 87086; 87186; 99212; G0463

== ENCOUNTER 2018-12-02 15:24 | Emergency (ER) | payer OTHER ==
[2018-12-02 15:41] VITALS: BP 107/70
--- NOTE | 2018-12-02 16:37 | UC ---
FLU HPI - HPI Summary HPI Summary: 23 y/o female presents to the urgent care c/o dry cough, body aches, fever, mild BOOGIE, subjective fever at home for the past 3 days. Pt has not taking anything to alleviate symptoms. He has been drinking fluids, eating well, urinating well w/ normal BM. Pt reports she was Dx with Hep C last year and since she has been in and out of rehab form drug abuse she hasn't been able to f /u well with her PCP. She made an appt w Dr Watson and got an appt only until 2018. Last night her cough was worse. Pt denies SOB, wheezing, dizziness, chest pain, abdominal pain, N/V/d. - History of Current Complaint Chief Complaint: UCRespiratory Stated Complaint: FEVER, COUGH, AND CHILLS Time Seen by Provider: 12/02/18 16:34 Hx Obtained From: Patient Hx Last Menstrual Period: IUD ?: No Onset/Duration: Gradual Onset, Lasting Days - 3 days, Still Present, Worse Since - last night Severity Currently: Mild Severity Initially: Moderate Pain Intensity: 2 Pain Scale Used: 0-10 Numeric Associated Signs & Symptoms: Positive: Myalgia, Cough - dry, Sore Throat - mild , Nasal Congestion - clear, Headache - mild Related Hx: Possible Flu/Infectious Exposure - Risk Factors Influenza Risk Factors: Negative - Allergy/Home Medications Allergies/Adverse Reactions: Allergies Allergy/AdvReac Type Severity Reaction Status Date / Time Penicillins Allergy Anaphylatic Verified 12/02/18 15:41 Shock Home Medications: Home Medications Doxepin HCl 1 tab PO DAILY 12/02/18 [History Confirmed 12/02/18] cloNIDine TAB* [Catapres 0.1 MG TAB*] 1 tab PO BID 12/02/18 [History Confirmed 12/02/18] PMH/Surg Hx/FS Hx/Imm Hx Previously Healthy: Yes Endocrine History: Diabetes - gestetational DM II Respiratory History: Asthma - as a child Other History Of: Hepatitis C - Dx in 89 - Surgical History Surgical History: None - Family History Known Family History: Positive: None, Other - mother - history of strep throat Negative: Cardiac Disease Family History: no cardio vascular issues in family lineage - Social History Occupation: Unemployed Lives: With Family Alcohol Use: None Substance Use Type: Prescribed Substance Use Comment - Amount & Last Used: clean since december 30, 2017 Smoking Status (MU): Light Every Day Tobacco Smoker Type: Cigarettes Amount Used/How Often: 1/2 PPD Have You Smoked in the Last Year: No - Immunization History Most Recent Influenza Vaccination: 2014 Most Recent Tetanus Shot: 2014 Most Recent Pneumonia Vaccination: na Vaccination Up to Date: Yes Review of Systems All Other Systems Reviewed And Are Negative: Yes Constitutional: Positive: Fever, Chills, Fatigue, Other - body aches Skin: Positive: Negative Eyes: Positive: Negative ENT: Positive: Sore Throat, Nasal Discharge - clear, Sinus Congestion Respiratory: Positive: Cough - dry Cardiovascular: Positive: Negative Gastrointestinal: Positive: Negative Genitourinary: Positive: Negative Motor: Positive: Negative Neurovascular: Positive: Negative Musculoskeletal: Positive: Myalgia Neurological: Positive: Headache - mild Psychological: Positive: Negative Is Patient Immunocompromised?: No Physical Exam - Summary Physical Exam Summary: VITAL SIGNS: Reviewed. GENERAL: Patient is a well developed and nourished female who is sitting comfortable in the examining table. Patient is not in any acute respiratory distress. HEAD AND FACE: No signs of trauma. No ecchymosis, hematomas or skull depressions. No sinus tenderness. EYES: PERRLA, EOMI x 2, No injected conjunctiva, no nystagmus. No photophobia. EARS: Hearing grossly intact. Ear canals and tympanic membranes are within normal limits. Nose: edematous and erythematous nasal mucosa w/ clear nasal discharge. MOUTH: Positive no erythema, no tonsillar enlargement. Uvula in midline. NECK: Supple, trachea is midline, Positive anterior cervical lymphadenopathy, no JVD, no carotid bruit, no c-spine tenderness, neck with full ROM. No meningeal signs, no Kernig's or brudzinskis signs. Respiratory: no orthopnea or dyspnea. Able to speak in full sentences, no retractions or accessory muscle use, no tripod position, stridor, or head bobbing. Positive breath sounds bilaterally. B/L posterior upper lungs w/ mild scattered rhonchi, no wheezing, no crackles or rales. CVS: Regular rate and rhythm, S1 and S2 present, no murmurs or gallops appreciated. ABDOMEN: Soft, non-tender. No signs of distention. No rebound no guarding, and no masses palpated. Bowel sounds are normal. EXTREMITIES: FROM in all major joints, no edema, no cyanosis or clubbing. NEURO: Alert and oriented x 3. No acute neurological deficits. Speech is normal and follows commands. SKIN: Dry and warm Triage Information Reviewed: Yes Vital Signs: Initial Vital Signs Temp 98.3 F 12/02/18 15:38 Pulse 84 12/02/18 15:38 Resp 12 12/02/18 15:38 BP 107/70 12/02/18 15:38 Pulse Ox 100 12/02/18 15:38 Flu Course/Dx - Course Course Of Treatment: 23 y/o female presents to the urgent care c/o dry cough, body aches, fever, mild BOOGIE, subjective fever at home for the past 3 days. Pt has not taking anything to alleviate symptoms. He has been drinking fluids, eating well, urinating well w/ normal BM. Pt reports she was Dx with Hep C last year and since she has been in and out of rehab form drug abuse she hasn't been able to f /u well with her PCP. She made an appt w Dr Watson and got an appt only until 2018. Last night her cough was worse. Pt denies SOB, wheezing, dizziness, chest pain, abdominal pain, N/V/d. Hx obtained. Pt with viral syndrome and mild posterior upper lungs w/ mild rhonchi on examination. Pt is hemodynamically stable, a febrile, O2Sat: 100%. Since PT w/ Hx of IVDA and Hep C and fever. Chest X-ray ordered to r/o any abnormality. Rapid strep ordered, result: negative.Influenza A&B ordered: result: Influenza A positive. After reviewing Pt 's records. Pt has Hep C hasn't been managed by any PCP and back in 12/10/2017 CPR was very elevated. Pt offered blood work, but she declined. Rx Tamiflu and ibuprofen PO to alleviates symptoms. Advised on hand washing and wear a mask to avoid spreading. Pt advised to rest, increase fluid intake, eat well and avoid strenuous exercise. Pt educated on Hep C and strongly recommended to f/u w/ Infectious disease Dr Escobedo or GI DR Camacho for further management on her Hep C. Pt also advised if symptoms worsen and fever is not controlled to go immediately to the ER for further management. D/C instructions explained. Pt understood and agreed w/ plan of care. - Differential Dx/Diagnosis Differential Diagnosis/HQI/PQRI: Bronchitis, Influenza, Pneumonia, Upper Respiratory Infection, Other - phryngitis Provider Diagnosis: Influenza A, Hepatitis C Discharge - Sign-Out/Discharge Documenting (check all that apply): Patient Departure - d/c home All imaging exams completed and their final reports reviewed: Yes - Discharge Plan Condition: Stable Disposition: HOME Prescriptions: Ibuprofen TAB* [Motrin TAB* 600 MG] 600 mg PO Q6H PRN #30 tab PRN Reason: Fever Oseltamivir CAP* [Tamiflu CAP*] 75 mg PO BID #10 cap Patient Education Materials: Influenza (ED) Referrals: [facility] [place] PHYSICIAN REFERRAL [Outside] - 2 Days () Fili Camacho MD [Medical Doctor] - 1 Day Dheeraj Escobedo MD [Medical Doctor] - 1 Day Additional Instructions: 1- Please take the full course of the antiviral to avoid resistance. Encourage hand washing and wear a mask to avoid spreading. 2-Please Ibuprofen PO q6-8hrs prn as instructed after meals to alleviate fever, and sore throat. Increase fluid intake, eat well, rest and avoid strenuous exercise 3- You decline blood work today. Please f/u w/ GI DR Camacho or Infectious Disease Dr Escobedo for further management on your Hep C which was Dx last year and she have not f/u w/ your PCP for further management. 3-Please also make appt w/ a PCP form our [facility] [place] network for further management on your symptoms 4- If symptoms worsen and fever can't be controlled w/ medications please go immediately to the ER for further management. - Billing Disposition and Condition Condition: STABLE Disposition: Home
[2018-12-02 16:44] LABS: Influenza A Molecular POSITIVE (Negative)
== END 2018-12-02 17:39 | disposition home or self-care (01) ==
LOC: UCEAST 15:24
DX: J10.1 Influenza due to other identified influenza virus with other respiratory manifestations (principal); B19.20 Unspecified viral hepatitis C without hepatic coma; F17.210 Nicotine dependence, cigarettes, uncomplicated; J45.909 Unspecified asthma, uncomplicated; Z88.0 Allergy status to penicillin
CPT/HCPCS: 71046; 87651; 99212; G0463

== ENCOUNTER 2018-12-05 12:09 | Emergency (ER) | payer OTHER ==
[2018-12-05] MEDS ORDERED: NS 0.9% 1000 ML** 1,000 ML IV ONE (12:24)
--- OUTSIDE RECORDS SUMMARY | 2018-12-05 12:27 | XMS REPORT | Continuity of Care Document ---
:1995 External Reference #:[id number] Author Name Ml Diaz Care Team Providers Name Role Phone Edna Ragsdale MD Care Team Information Heavy Duty Truck Mechanic Unavailable Salty Sierra MD Primary Care Physician Unavailable Payers Date Identification Numbers Payment Provider Subscriber Policy Number: [id number] [employer] Medicaid Mirela Ren PayID: [id number] [address] [address] [place] [address] Advance Directives Description No Information Available Problems Date Description Provider Status Onset: 04/07/2015 Disorder of bursa of shoulder region Hi Singh M.D. Active Onset: 11/23/2017 Insomnia Salty Sierra M.D. Active Onset: 11/23/2017 Anxiety state Salty Sierra M.D. Active Onset: 11/23/2017 Opioid dependence in remission Salty Sierra M.D. Active Onset: 05/11/2016 Mild recurrent major depression Salty Sierra M.D. Active Onset: 05/04/2015 Bicipital tenosynovitis Hi Singh M.D. Active Family History Date Family Member(s) Observation Comments General Diabetes General Cancer Mother Fibromyalgia Social History Type Date Description Comments Sex Unknown Lives With Mother And Father Occupation Currently Working ETOH Use Denies alcohol use Tobacco Use Start: Unknown Patient is a current smoker, smokes every day Recreational Drug Use Formerly addicted to Heroin Smoking Status Reviewed: 12/03/18 Patient is a current smoker, smokes every day Exercise Type/Frequency Does not exercise Allergies, Adverse Reactions, Alerts Date Description Reaction Status Severity Comments 04/07/2015 Penicillins Hives, throat swells Active Medications Medication Date Status Form Strength Qnty SIG Indications Ordering Provider Gabapentin 11/23/ Active Capsules 300mg 90cap 1 by mouth F41.9 Salty 2017 s three [place] times a , M.D. day Bupropion HCL 11/23/ Active Tablets ER 150mg 30tab once daily F33.0 Salty ER (XL) 2018 24HR s in the [facility] morning , M.D. with food Ibuprofen / Active Tablets 600mg Unknown 0000 Oseltamivir / Active Capsules 75mg Unknown Phosphate 0000 Buprenorphine / Active Film 12-3mg 1/2 strip Unknown Hydrochloride/N 0000 daily aloxone Hydrochloride Doxepin HCL / Active Capsules 50mg Unknown 0000 Clonidine HCL / Active Tablets 0.1mg Unknown 0000 Dok / Active Capsules 100mg Unknown 0000 Hydroxyzine HCL 11/23/ Hx Tablets 25mg 60tab 1-2 G47.00 Salty 2017 - s tablets by [place] 12/02/ mouth hs , M.D. 2019 Vistaril 01/26/ Hx Capsules 60cap 1-2 by Salty 2015 - s mouth four [place] 05/11/ times , M.D. 2016 daily as needed Acyclovir 12/24/ Hx Ointment 5% 1tube apply B00.89 Salty 2015 - every 2 h [place] 11/22/ when awake , M.D. 2018 untill healed Meloxicam 12/24/ Hx Tablets 15mg 30tab once daily M25.511 Salty 2016 - s with food [place] 11/22/ , M.D. 2018 Sertraline HCL 12/24/ Hx Tablets 100mg 60tab 1 by mouth F33.0 Humza 2016 - s twice DRenee Walters, 01/26/ every day M.D.,FACP 2016 Ibuprofen 12/08/ Hx Tablets 400mg 90tab 1 tab M25.511 Salty 2016 - s three [place] 12/24/ times a , M.D. 2016 day Azithromycin 12/08/ Hx Tablets 250mg 6tabs 2 tab J04.0 Salty 2016 - today and [place] 12/24/ then 1tab , M.D. 2016 daily No Active 04/07/ Hx Unknown Medications 2014 - 2015 Suboxone / Hx Film 6mg bid Unknown 0000 - 2017 Hydroxyzine 00/ Hx Capsules 25mg 30cap 1 cap at [place] 0000 - s bedtime [facility] , M.DRenee 2017 Gabapentin / Hx Capsules 600mg 3 by mouth Unknown 0000 - daily as 2017 Clonidine HCL / Hx Tablets ER 0.1mg 30tab 1 daily at [place] ER 0000 - 12HR s bedtime [facility] , M.DRenee 2017 Sertraline HCL / Hx Tablets 100mg 30tab 1 by mouth Salty 0000 - s every day [facility] , .DRenee 2018 Iron / Hx Tablets 325(65Fe) 30tab 1 by mouth Salty 0000 - mg s every day [facility] , .DRenee 2017 Magnesium / Hx Tablets 400mg 30tab one tab Salty 0000 - s daily [facility] , .DRenee 2017 Wellbutrin XL / Hx Tablets ER 300mg 1 by mouth Unknown 0000 - 24HR every day 2018 Gabapentin / Hx Capsules 100mg take 1 in Unknown 0000 - the Am 1 12/02/ po at noon 2018 and 3 capsules by mouth at night Neltrexone / Hx mg uknown Unknown 0000 - 2018 Vivitrol / Hx Suspension 380mg ( not Unknown 0000 - Rec taking ) once 2019 monthly injection Medications Administered in Office Medication Date Status Form Strength Qnty SIG Indications Ordering Provider Depomedrol Administered Injection Hi 80MG 015 Steve Singh Depomedrol Administered Injection Hi 80MG 015 Steve Singh Influenza Administered Injection Unknown Virus Vaccine 997 Immunizations CPT Code Status Date Vaccine Lot # [id number] Given 05/26/2008 Varicella (Chicken Pox) Immunization 26776 Given 05/26/2008 Gardasil (HPV) 26827 Given 05/26/2008 Hepatitis A Vaccine Pediatric/Adolescent Dosage 2 Dose Schedule 04559 Given 01/25/2008 Gardasil (HPV) 53085 Given 04/30/2007 Meningitis MCV4 MenACWY Meningococcal Conjugate Vaccine 52957 Given 04/30/2007 Tdap - Tetanus/Diptheria/Acellular Pertussis 27727 Given 04/30/2007 Gardasil (HPV) 42710 Given 10/29/1999 Measles Mumps And Rubella MMR 92937 Given 10/29/1999 IPV/Poliomyelitis Immunization 96990 Given 10/29/1999 Tdap - Tetanus/Diptheria/Acellular Pertussis 36403 Given 10/29/1999 Varicella (Chicken Pox) Immunization 97939 Given 10/16/1996 IPV/Poliomyelitis Immunization 39010 Given 06/27/1996 Measles Mumps And Rubella MMR 80563 Given 1995 Hep B Pediatric/Adolescent 55056 Given 1995 IPV/Poliomyelitis Immunization 95763 Given 1995 Hep B Pediatric/Adolescent 17770 Given 1995 IPV/Poliomyelitis Immunization 56219 Given 1995 Hep B Pediatric/Adolescent Vital Signs Date Vital Result Comment 12/03/2018 1:48pm Height 66 inches 5'6" Weight 129.38 lb Heart Rate 62 /min BP Systolic Sitting 120 mmHg BP Diastolic Sitting 80 mmHg Respiratory Rate 14 /min Body Temperature 97.5 F BMI (Body Mass Index) 20.9 kg/m2 11/23/2017 9:42am Height 66 inches 5'6" Weight 147.12 lb Heart Rate 105 /min BP Systolic 110 mmHg BP Diastolic 76 mmHg Body Temperature 98.9 F O2 % BldC Oximetry 97 % BMI (Body Mass Index) 23.7 kg/m2 05/11/2016 9:06am Weight 131.00 lb Heart Rate 101 /min BP Systolic Sitting 102 mmHg BP Diastolic Sitting 75 mmHg O2 % BldC Oximetry 98 % 01/27/2016 10:44am Weight 130.00 lb Heart Rate 70 /min BP Systolic Sitting 110 mmHg BP Diastolic Sitting 66 mmHg O2 % BldC Oximetry 98 % 12/25/2015 10:53am Weight 135.00 lb Heart Rate 96 /min BP Systolic Sitting 117 mmHg BP Diastolic Sitting 71 mmHg Body Temperature 96.7 F 12/09/2015 8:31am Height 66 inches 5'6" Weight 130.00 lb Heart Rate 116 /min BP Systolic 100 mmHg BP Diastolic 60 mmHg Body Temperature 98.5 F O2 % BldC Oximetry 98 % BMI (Body Mass Index) 21.0 kg/m2 05/04/2015 8:30am Height 66 inches 5'6" Weight 130.00 lb Pain Level 2 BMI (Body Mass Index) 21.0 kg/m2 04/07/2015 11:24am Height 66 inches 5'6" Weight 130.00 lb Heart Rate 68 /min BP Systolic Sitting 128 mmHg BP Diastolic Sitting 72 mmHg Pain Level 4 BMI (Body Mass Index) 21.0 kg/m2 Results Test Date Facility Test Result H/L Range Note Urinalysis Profile 12/10/2017 [facility] Urine Color Yellow [address] [place] [address] [phone] Urine Appearance Cloudy Urine Specific [place] 1.010 N 1.010-1.030 Urine pH 6.0 N 5-9 Urine Urobilinogen Negative Negative Urine Ketones Negative Negative Urine Protein 1+(30 mg/dL) Abnormal Negative Urine Leukocytes 3+ Abnormal Negative Urine Blood 3+ Abnormal Negative Urine Nitrite Negative Negative Urine Bilirubin Negative Negative Urine Glucose Negative Negative Urine White Blood Cell 3+(>20/hpf) Abnormal Absent Urine Red Blood Cell 3+(>10/hpf) Abnormal Absent Urine Bacteria 3+ Abnormal Absent Urine Squamous Epithelial Cell Present Abnormal Absent Urine Amorphous Crystals Present Abnormal Absent Urine Culture And 12/10/2017 [facility] Urine SEE RESULT [address] [place] [address] [phone] CBC Auto Diff 12/10/2017 [facility] White Blood 13.8 High 3.5- [address] Count 10^3/uL 0.8 [place] [address] [phone] Red Blood Count 4.35 10^6/uL N 4.0-5.4 Hemoglobin 12.6 g/dL N 12.0-16.0 Hematocrit 38 % N 35-47 Mean Corpuscular Volume 86 fL N 80-97 Mean Corpuscular Hemoglobin 29 pg N 27-31 Mean Corpuscular HGB Conc 34 g/dL N 31-36 Red Cell Distribution Width 14 % N 10.5-15 Platelet Count 262 10^3/uL N 150-450 Mean Platelet Volume 7.7 um3 N 7.4-10.4 Abs Neutrophils 9.4 10^3/uL High 1.5-7.7 Abs Lymphocytes 2.6 10^3/uL N 1.0-4.8 Abs Monocytes 1.6 10^3/uL High 0-0.8 Abs Eosinophils 0 10^3/uL N 0-0.6 Abs Basophils 0.1 10^3/uL N 0-0.2 Abs Nucleated RBC 0 10^3/uL Granulocyte % 68.2 % N 38-83 Lymphocyte % 19.1 % Low 25-47 Monocyte % 11.9 % High 0-7 Eosinophil % 0.3 % N 0-6 Basophil % 0.5 % N 0-2 Nucleated Red Blood Cells % 0.1 Comp Metabolic Panel 12/10/2017 [facility] Sodium 133 mmol/L N 133-[address] [place] [address] [phone] Potassium 3.9 mmol/L N 3.5-5.0 Chloride 99 mmol/L Low 101-111 Co2 Carbon Dioxide 26 mmol/L N 22-32 Anion Gap 8 mmol/L N 2-11 Glucose 102 mg/dL High 70-100 Blood Urea Nitrogen 14 mg/dL N 6-24 Creatinine 0.86 mg/dL N 0.51-0.95 BUN/Creatinine Ratio 16.3 N 8-20 Calcium 9.1 mg/dL N 8.6-10.3 Total Protein 7.5 g/dL N 6.4-8.9 Albumin 3.4 g/dL N 3.2-5.2 Globulin 4.1 g/dL High 2-4 Albumin/Globulin Ratio 0.8 Low 1-3 Total Bilirubin 0.60 mg/dL N 0.2-1.0 Alkaline Phosphatase 89 U/L N 34-104 Alt 35 U/L N 7-52 Ast 32 U/L N 13-39 Egfr Non- 82.5 >60 Egfr 106.1 >60 2 Laboratory test finding 12/10/2017 [facility] Lipase 22 U/L N 11.0-82.[address] [place] [address] [phone] HCG < 0.60 mIU/mL 3 CRP High Sensitivity 249.31 mg/L 4 Laboratory test 12/10/2017 [facility] D Dimer 395 ng/mL High Less [address] Quantitative Than 230 [place] [address] [phone] Liver Function 11/01/2017 [facility] Total Protein 8.1 g/dL N 6.4-8.[address] [place] [address] [phone] Albumin 4.8 g/dL N 3.2-5.2 Globulin 3.3 g/dL N 2-4 Albumin/Globulin Ratio 1.5 N 1-3 Total Bilirubin 0.30 mg/dL N 0.2-1.0 Direct Bilirubin 0.10 mg/dL N 0.03-0.18 Indirect Bilirubin 0.2 mg/dL Low 0.3-1.0 Alkaline Phosphatase 84 U/L N 34-104 Alt 53 U/L High 7-52 Ast 31 U/L N 13-39 Laboratory test 11/01/2017 [facility] Hepatitis C 423588 Undetected [address] Rna Quant IU/[place] [address] [phone] Laboratory test 08/24/2017 [facility] MRSA/S. SEE RESULT 7 , [address] [place] [address] PCR [phone] Wound 08/24/2017 [facility] Wound/Misc SEE RESULT 9 Culture/Sensi [address] [place] [address] Stain [phone] Wound 02/12/2017 [facility] Wound/Misc SEE RESULT 10 Culture/Sensi [address] [place] [address] Stain [phone] CBC Auto Diff 05/11/2016 [facility] White Blood 6.0 N 3.5- 10.[address] Count 10^3/[place] [address] [phone] Red Blood Count 5.25 10^6/uL N 4.0-5.4 Hemoglobin 14.2 g/dL N 12.0-16.0 Hematocrit 42 % N 35-47 Mean Corpuscular Volume 80 fL N 80-97 Mean Corpuscular Hemoglobin 27 pg N 27-31 Mean Corpuscular HGB Conc 34 g/dL N 31-36 Red Cell Distribution Width 16 % High 10.5-15 Platelet Count 248 10^3/uL N 150-450 Mean Platelet Volume 8 um3 N 7.4-10.4 Abs Neutrophils 1.6 10^3/uL N 1.5-7.7 Abs Lymphocytes 3.4 10^3/uL N 1.0-4.8 Abs Monocytes 0.5 10^3/uL N 0-0.8 Abs Eosinophils 0.4 10^3/uL N 0-0.6 Abs Basophils 0.1 10^3/uL N 0-0.2 Abs Nucleated RBC 0 10^3/uL N Granulocyte % 27.1 % Low 38-83 Lymphocyte % 56.4 % High 25-47 Monocyte % 8.9 % N 1-9 Eosinophil % 6.6 % High 0-6 Basophil % 1.0 % N 0-2 Nucleated Red Blood Cells % 0.1 N Comp Metabolic Panel 05/11/2016 [facility] Sodium 134 mmol/L N 133-[address] [place] [address] [phone] Potassium 3.9 mmol/L N 3.5-5.0 Chloride 103 mmol/L N 101-111 Co2 Carbon Dioxide 25 mmol/L N 22-32 Anion Gap 6 mmol/L N 2-11 Glucose 91 mg/dL N 70-100 Blood Urea Nitrogen 15 mg/dL N 6-24 Creatinine 0.76 mg/dL N 0.51-0.95 BUN/Creatinine Ratio 19.7 N 8-20 Calcium 9.8 mg/dL N 8.6-10.3 Total Protein 7.4 g/dL N 6.4-8.9 Albumin 4.4 g/dL N 3.2-5.2 Globulin 3.0 g/dL N 2-4 Albumin/Globulin Ratio 1.5 N 1-3 Total Bilirubin 0.70 mg/dL N 0.2-1.0 Alkaline Phosphatase 84 U/L N 34-104 Alt 13 U/L N 7-52 Ast 26 U/L N 13-39 Egfr Non- 97.0 N >60 Egfr 124.8 N >60 11 Laboratory test 05/11/2016 [facility] Magnesium 2.2 mg/dL N 1.9-2.[address] [place] [address] [phone] CBC Auto Diff 12/10/2015 [facility] White Blood 6.9 N 3.5- 10.[address] Count 10^3/[place] [address] [phone] Red Blood Count 4.81 10^6/uL N 4.0-5.4 Hemoglobin 12.7 g/dL N 12.0-16.0 Hematocrit 40 % N 35-47 Mean Corpuscular Volume 82 fL N 80-97 Mean Corpuscular Hemoglobin 27 pg N 27-31 Mean Corpuscular HGB Conc 32 g/dL N 31-36 Red Cell Distribution Width 16 % High 10.5-15 Platelet Count 273 10^3/uL N 150-450 Mean Platelet Volume 8 um3 N 7.4-10.4 Abs Neutrophils 1.3 10^3/uL Low 1.5-7.7 Abs Lymphocytes 4.3 10^3/uL N 1.0-4.8 Abs Monocytes 0.9 10^3/uL High 0-0.8 Abs Eosinophils 0.2 10^3/uL N 0-0.6 Abs Basophils 0.1 10^3/uL N 0-0.2 Abs Nucleated RBC 0 10^3/uL N Granulocyte % 18.7 % Low 38-83 Lymphocyte % 63.2 % High 25-47 Monocyte % 13.5 % High 1-9 Eosinophil % 3.5 % N 0-6 Basophil % 1.1 % N 0-2 Nucleated Red Blood Cells % 0.1 N Comp Metabolic Panel 12/10/2015 [facility] Sodium 137 mmol/L N 133-145 [address] [place] [address] [phone] Potassium 4.4 mmol/L N 3.5-5.0 Chloride 105 mmol/L N 101-111 Co2 Carbon Dioxide 29 mmol/L N 22-32 Anion Gap 3 mmol/L N 2-11 Glucose 54 mg/dL Low 70-100 Blood Urea Nitrogen 12 mg/dL N 6-24 Creatinine 0.70 mg/dL N 0.51-0.95 BUN/Creatinine Ratio 17.1 N 8-20 Calcium 9.6 mg/dL N 8.6-10.3 Total Protein 7.0 g/dL N 6.4-8.9 Albumin 3.7 g/dL N 3.2-5.2 Globulin 3.3 g/dL N 2-4 Albumin/Globulin Ratio 1.1 N 1-3 Total Bilirubin 0.40 mg/dL N 0.2-1.0 Alkaline Phosphatase 115 U/L High 34-104 Alt 26 U/L N 7-52 Ast 40 U/L High 13-39 Egfr Non- 106.7 N >60 Egfr 137.2 N >60 12 1 SEE RESULT BELOW Name: MIRELA REN : [address]: Jared Moreno MD Acct: [id number] Unit: [id number] AGE: 22 Location: ED Re12/10/17 SEX: F Status: DEP ER SPEC: [id number] ZULMA: 12/10/[address]: Estelle PRECIADO REQ: [id number] RECD: 12/10/17 STATUS: RES OTHR DR: Jared Sierra MD _ SOURCE: URINE SPDESC: ORDERED: Urine Culture Procedure Result Reported Site Urine Culture Preliminary 12/12/17- 1120 ML Organism 1 ESCHERICHIA COLI [place] Count >100,000 (Many) CFU/ML * ML - Main Lab . END OF REPORT DEPARTMENT OF PATHOLOGY, [address] [place] [address] Misbah Childers M.D. Director [facility] # [id number] 2 Because ethnic data is not always readily available, this report includes an eGFR for both -Americans and non- Americans. The National Kidney Disease Education Program (NKDEP) does not endorse the use of the MDRD equation for patients that are not between the ages of 18 and 70, are , have extremes of body size, muscle mass, or nutritional status, or are non- or non-. According to the National Kidney Foundation, irrespective of diagnosis, the stage of the disease is based on the level of kidney function: Stage Description GFR(mL/min/1.73 m(2)) 1 Kidney damage with normal or decreased GFR 90 2 Kidney damage with mild decrease in GFR 60-89 3 Moderate decrease in GFR 30-59 4 Severe decrease in GFR 15-29 5 Kidney failure <15 (or dialysis) 3 <5.0 Negative 5.0 - 25.0 Indeterminate (Repeat testing recommended after 72 hours) >25.0 Positive Perimenopausal women can display HCG levels of up to 20 mIU/mL 4 Low risk: <1.00 Average risk: 1.00-3.00 High risk: >3.00 5 Please note: The following may produce a false positive D Dimer test: - Rheumatoid factor greater than 60 IU/ml - Plasma hemoglobin greater than 0.05 gm/dl - Bilirubin greater than 50 mg/dl - Lipids greater than 1000 mg/dl - FDP greater than 20 ug/ml 6 Result in log IU/mL is 5.01. ADDITIONAL INFORMATION The quantification range of this assay is 15 to 100,000,000 IU/mL (1.18 log to 8.00 log IU/mL). Testing was performed using the diana HCV test ([employer] with the diana Everbridge0 System. Test Performed by: [facility] [address] [place] [address] 7 [id number] SOURCE: LEFT SHOULDER 8 SEE RESULT BELOW Name: MIRELA REN : [address]: Jamel Jimenez MD Acct: [id number] Unit: [id number] AGE: 22 Location: [facility] Re08/24/17 SEX: F Status: DEP ER SPEC: [id number] ZULMA: 08/24/17-[address]: Hernandez PRECIADO REQ: [id number] RECD: 08/24/17 STATUS: COMP [facility] DR: Jamel Sierra MD _ SOURCE: SHOULDER,L SPDESC: ORDERED: MRSA/SA SSTI, Culture Stain COMMENTS: [id number] SOURCE: LEFT SHOULDER Verbal to [id number] by [email or web address] at 1549 on 08/25/17. Results read back accurately. Procedure Result Reported Site MRSA/S. aureus SSTI PCR Final 08/25/17- 1549 ML Organism 1 MRSA POSITIVE Organism 2 S.AUREUS POSITIVE Wound/Misc Gram Stain Final 08/25/17- 0716 ML 4+ Neutrophils 1+ Epithelial Cells No Organisms Seen Wound/Misc Culture Final 08/26/17- 1212 ML Organism 1 MRSA Quantity 1+ Consistent with previous results. 1. MRSA M.I.C. RX --------- ------ Penicillin >=0.5 R Clindamycin <=0.25 S Erythromycin >=8 R Gentamicin <=0.5 S CONTINUED ON NEXT PAGE * ML=Testing performed at Main Lab DEPARTMENT OF PATHOLOGY, [address] [place] [address] Misbah Childers M.D. Director [facility] # [id number] Patient: MIRELA REN [id number] (Continued) Specimen: [id number] Collected: 08/24/17 Received: 08/24/17 (Continued) Procedure Result Reported Site Wound/Misc Culture Final (continued) 08/26/17- 1212 1. MRSA (continued) M.I.C. RX --------- ------ Linezolid 2 S Nitrofurantoin <=16 S Oxacillin >=4 R * Quinupristin/Dalfopristin <=0.25 S Rifampin <=0.5 S Tetracycline <=1 S Doxycycline - Deduced S * Minocycline - Deduced S Trimethoprim/Sulfamethoxazole <=10 S Vancomycin 1 S Imipenem-Deduced R * Ampicillin/Sulbactam-Deduced R Cefazolin-Deduced R * These antibiotics are not available in the [facility] Formulary Contact the Microbiology Department for any additional antibiotic reporting. * ML - MAIN LAB ([facility]) . END OF REPORT * ML=Testing performed at Main Lab DEPARTMENT OF PATHOLOGY, [address] [place] [address] Misbah Childers M.D. Director [facility] # [id number] 9 SEE RESULT BELOW Name: MIRELA REN : [address]: Jamel Jimenez MD Acct: [id number] Unit: [id number] AGE: 22 Location: [facility] Re08/24/17 SEX: F Status: DEP ER SPEC: [id number] ZULMA: 08/24/17-[address]: Hernandez PRECIADO REQ: [id number] RECD: 08/24/17 STATUS: RES [facility] DR: Jamel Sierra MD _ SOURCE: DAVIDL SPDESC: ORDERED: Culture Stain COMMENTS: [id number] SOURCE: LEFT SHOULDER Procedure Result Reported Site Wound/Misc Gram Stain Final 08/25/17- 0716 ML 4+ Neutrophils 1+ Epithelial Cells No Organisms Seen Wound/Misc Culture Preliminary 08/25/17- 1435 ML Organism 1 STAPHYLOCOCCUS AUREUS Quantity 1+ * ML - MAIN LAB ([facility]) . END OF REPORT * ML=Testing performed at Main Lab DEPARTMENT OF PATHOLOGY, [address] [place] [address] Misbah Childers M.D. Director [facility] # [id number] 10 SEE RESULT BELOW Name: MIRELA REN : [address]: Jose Mora MD Acct: [id number] Unit: [id number] AGE: 21 Location: ED Re02/12/17 SEX: F Status: DEP ER SPEC: [id number] ZULMA: 02/12/17-[address]: Jose Mora MD REQ: [id number] RECD: 02/12/17 STATUS: COMP [facility] DR: Salty Sierra MD _ SOURCE: WON WALKER SPDESC: ORDERED: Culture Stain COMMENTS: Verbal to DR. MORA by [id number] at 1440 on 02/12/17. UNABLE TO RUN SPECIMEN ON CEPHEID. IT ERRORED OUT TWICE. PATIENT SENT HOME WITH PACKING OF ABSCESS AND IS ON BACTRIM PER DR. MORA. MRSA: Verbal to [id number] by [id number] at 0942 on 02/14/17. Results read back accurately. Procedure Result Reported Site Wound/Misc Gram Stain Final 02/12/17- 1410 ML 4+ Neutrophils 2+ Gram Positive Cocci in Clusters, resembling Staph Wound/Misc Culture Final 02/14/17- 0942 ML Organism 1 MRSA Quantity 3+ 1. MRSA M.I.C. RX --------- ------ Penicillin >=0.5 R Clindamycin <=0.25 S Erythromycin >=8 R Gentamicin <=0.5 S Linezolid 2 S Nitrofurantoin <=16 S Oxacillin >=4 R * Quinupristin/Dalfopristin <=0.25 S Rifampin <=0.5 S Tetracycline <=1 S CONTINUED ON NEXT PAGE * ML=Testing performed at Main Lab DEPARTMENT OF PATHOLOGY, [address] [place] [address] Misbah Childers M.D. Director [facility] # [id number] Patient: MIRELA REN [id number] (Continued) Specimen: [id number] Collected: 02/12/17132 Received: 02/12/17 (Continued) Procedure Result Reported Site Wound/Misc Culture Final (continued) 02/14/17- 941 1. MRSA (continued) M.I.C. RX --------- ------ Doxycycline - Deduced S * Minocycline - Deduced S Trimethoprim/Sulfamethoxazole <=10 S Vancomycin 1 S Imipenem-Deduced R * Ampicillin/Sulbactam-Deduced R Cefazolin-Deduced R * These antibiotics are not available in the [facility] Formulary Contact the Microbiology Department for any additional antibiotic reporting. * ML - MAIN LAB ([facility]) . END OF REPORT * ML=Testing performed at Main Lab DEPARTMENT OF PATHOLOGY, [address] [place] [address] Misbah Childers M.D. Director [facility] # [id number] 11 Because ethnic data is not always readily available, this report includes an eGFR for both -Americans and non- Americans. The National Kidney Disease Education Program (NKDEP) does not endorse the use of the MDRD equation for patients that are not between the ages of 18 and 70, are , have extremes of body size, muscle mass, or nutritional status, or are non- or non-. According to the National Kidney Foundation, irrespective of diagnosis, the stage of the disease is based on the level of kidney function: Stage Description GFR(mL/min/1.73 m(2)) 1 Kidney damage with normal or decreased GFR 90 2 Kidney damage with mild decrease in GFR 60-89 3 Moderate decrease in GFR 30-59 4 Severe decrease in GFR 15-29 5 Kidney failure <15 (or dialysis) 12 Because ethnic data is not always readily available, this report includes an eGFR for both -Americans and non- Americans. The National Kidney Disease Education Program (NKDEP) does not endorse the use of the MDRD equation for patients that are not between the ages of 18 and 70, are , have extremes of body size, muscle mass, or nutritional status, or are non- or non-. According to the National Kidney Foundation, irrespective of diagnosis, the stage of the disease is based on the level of kidney function: Stage Description GFR(mL/min/1.73 m(2)) 1 Kidney damage with normal or decreased GFR 90 2 Kidney damage with mild decrease in GFR 60-89 3 Moderate decrease in GFR 30-59 4 Severe decrease in GFR 15-29 5 Kidney failure <15 (or dialysis) Procedures Date Code Description Status 05/04/201518332 Inject Tendon Sheath Or Ligament Aponeurosis Eg Plantar Completed Fascia 04/07/201502500 Inject Tendon Sheath Or Ligament Aponeurosis Eg Plantar Completed Fascia 02/10/2011 46101 Rad Exam; Ankle Comp Completed 02/02/2011 51999 [facility]SD [place] Distal Fib FX (Lateral Malleolus) w/o manipulation Completed 09/03/2010 87416 FX Tibial Closed Trtment Proxi Completed 08/16/2010 98941 Rad Exam; Tib-Fib Completed Encounters Type Date Location Provider Dx Diagnosis Office Visit 11/23/2017 [facility] Salty Sierra, F33.0 Major depressive 9:40a [facility] - [place] M.D. disorder, Rd recurrent, mild F11.21 Opioid dependence, in remission F41.9 Anxiety disorder, unspecified G47.00 Insomnia, unspecified Office Visit 05/11/2016 9:20a [facility] Internal Salty Pachikara, F33.0 Major depressive Medicine - M.DRenee disorder, [place] recurrent, mild D64.9 Anemia, unspecified E83.42 Hypomagnesemia Office Visit 01/27/2016 10:40a [facility] Internal [place], F33.0 Major depressive Medicine - M.D. 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 Bicipital C.M.A. Office Visit 04/07/2015 11:00a Jessica Singh 726.12 Tenosynovitis Services Of M.D. Bicipital C.M.A. Office Visit 12/17/2010 8:45a [facility]opedic Yosef 733.93 Stress Fracture Of Services Of Carlyn, Tibia Or Fibula C.M.A. M.D. Office Visit 08/16/2010 8:45a Orthopedic Shu 844.9 Sprains & Strains Services Of Yunior, Knee & Leg Unspec C.M.A. RPA-C 733.95 Stress Fracture Of Other Bone Office Visit 08/02/2010 9:00a Orthopedic Shu Mojica 844.9 Sprains & Services Of C.M.Mally. RPA-C Strains Knee & Leg Unspec Plan of Treatment Future Appointment(s):12/21/2018 9:50 am - Dheeraj Concepcion M.D. at [facility]/18/2019 11:00 am - Monica Watson MD at [facility]12/03/2018 - Dheeraj Concepcion M.D.B18.2 Chronic viral hepatitis CComments:labs now; some will clear due to immune response, will see if still present and check genotype as well. Treatment options discussed and high cure rate. All questions answered.Follow up:3 weeks
[2018-12-05 12:56] LABS: ABS Basophils 0 10^3/ul (0-0.2); ABS Eosinophils 0.2 10^3/ul (0-0.6); ABS Monocytes 0.5 10^3/ul (0-0.8); ABS Neutrophils 3.6 10^3/ul (1.5-7.7); ABS Nucleated RBC 0 10^3/ul; Eosinophil % 3.9 %; Hematocrit 39 % (33-41); Hemoglobin 12.7 g/dL (12.0-16.0); Lymphocyte % 31.9 %; Mean Corpuscular HGB Conc 33 g/dL (31-36); Mean Corpuscular Hemoglobin 28 pg (27-31); Mean Corpuscular Volume 84 fL (80-97); Mean Platelet Volume 8.4 fL (7.4-10.4); Nucleated Red Blood Cells % 0.1; Platelet Count 176 10^3/uL (150-450); Red Cell Distribution Width 14 % (10.5-15); White Blood Count 6.3 10^3/uL (3.5-10.8)
--- NOTE | 2018-12-05 13:06 | ED ---
Neurological HPI - HPI Summary HPI Summary: This pt is a 23 y/o female presenting to [facility] via EMS for a witnessed seizure today. Pt reports she was diagnosed with influenza 3 days ago (12/02) and was prescribed Tamiflu, pt had been "sick" since 1 week ago. She has been taking Tamiflu and has been tolerating it well. Pt states this morning she got up and got ready to go to [facility] but remembers feeling "funny" at home. She notes feeling shaky while driving and upon arriving to the store while in the parking lot it progressively worsened, her shaking was worse. Pt felt disoriented while walking in [facility], not knowing where she was going, and then felt her knees buckling and arms twitching. Pt then had LOC witnessed by a dock clerk at the store and was described as a tonic clonic seizure. No incontinence, intra-oral lesions. She was told she had a head strike but has no head pain or lesion. Denies any pain, head pain, leg pain, arm pain after fall. Denies biting her tongue. Denies urinary or bowel incontinence. She has never had this episode in the past and denies hx of seizures. Pt currently with tremors and twitching. She reports having had tremors before from medications, but not like today. LMP: currently on it. Denies chance of . No seizures in family hx. Pravin reports this is the first time she has seen the pt in a month. Pravin followed the ambulance to the ED. Pravin noticed pt's face was flushed. Pt does not take any OTC medications. Pt lives in a [facility] and is there for heroin abuse. She last used heroin on December 30, 2017. Denies using any other substances recently. Her medications include Doxepin, Gabapentin, Clonidine, Suboxone (prescribed by PETER Gómez RN). Her last dose of Suboxone was this morning, 6 mg. Pt smokes about 1/2 PPD. Denies alcohol use Patient medication reviewed this visit. - History of Current Complaint Chief Complaint: EDSeizure Stated Complaint: SEIZURE WEEKNS PER EMS Hx Obtained From: Patient, Family/[employer] - Grandmother Hx Last Menstrual Period: IUD Onset/Duration: Sudden Onset Timing: Sudden Onset Onset Severity: Moderate Neurological Deficit Location: Generalized - seizure Pain Intensity: 0 - denies pain Pain Scale Used: 0-10 Numeric Character: Other: - seizure Seizure Character: Total-Clonic Aggravating: Nothing Alleviating: Nothing Associated Signs and Symptoms: Positive: Loss of Consciousness, Seizure. Negative: Headache, Pain, Fever Related Hx: Alcohol/Drug Abuse - heroin - Allergy/Home Medications Allergies/Adverse Reactions: Allergies Allergy/AdvReac Type Severity Reaction Status Date / Time Penicillins Allergy Anaphylatic Verified 12/02/18 15:41 Shock Home Medications: Home Medications Doxepin (NF) 50 mg PO DAILY 12/05/18 [History Confirmed 12/05/18] cloNIDine TAB* [Catapres 0.1 MG TAB*] 0.1 mg PO BID 12/05/18 [History Confirmed 12/05/18] PMH/Surg Hx/FS Hx/Imm Hx Previously Healthy: No - substance use disorder Endocrine/Hematology History: Denies: Hx Diabetes, Hx Thyroid Disease Cardiovascular History: Denies: Hx Hypertension Respiratory History: Reports: Hx Pneumonia - 2 YEARS AGO Denies: Hx Asthma, Hx Chronic Obstructive Pulmonary Disease (COPD) GI History: Denies: Hx Ulcer History: Denies: Hx Renal Disease Sensory History: Reports: Hx Contacts or Glasses Opthamlomology History: Reports: Hx Contacts or Glasses Psychiatric History: Reports: Hx Anxiety, Hx Depression - was taking zoloft, disc. managed by PCP, Hx Substance Abuse Infectious Disease History: No Infectious Disease History: Denies: Hx Clostridium Difficile, Hx Hepatitis, Hx Human Immunodeficiency Virus (HIV), Hx of Known/Suspected MRSA, Hx Shingles, Hx Tuberculosis, Hx Known/ Suspected VRE, Hx Known/Suspected VRSA, History Other Infectious Disease, Traveled Outside the [place] in Last 30 Days - Family History Known Family History: Positive: Other - mother - history of strep throat Negative: Cardiac Disease Family History: no cardio vascular issues in family lineage. No Fhx of seizures. - Social History Occupation: Unemployed Lives: Dormitory/Roommates - [employer] [facility] Alcohol Use: None Substance Use Type: Reports: Prescribed Substance Use Comment - Amount & Last Used: clean since december 30, 2017 Hx Tobacco Use: Yes Smoking Status (MU): Heavy Every Day Tobacco Smoker Type: Cigarettes Amount Used/How Often: 1/2 PPD Have You Smoked in the Last Year: No Review of Systems Negative: Fever Negative: incontinence - urinary or bowel Negative: Other - NEGATIVE: head pain, leg pain, arm pain Skin: Negative Neurological: Other - POS: seizure, tremors, "twitching" Negative: Headache All Other Systems Reviewed And Are Negative: Yes Physical Exam - Summary Physical Exam Summary: Vital Signs Reviewed: Yes A+Ox3, no distress Eyes: Conjunctiva Clear, MERRITT. EOM intact and full ENT: Hearing grossly normal TM x 2 clear, mmoist, uvula midline, no exudate, no erythema Neck: Positive: Supple Respiratory: Positive: No respiratory distress, No accessory muscle use + CTA throughout no w/r Cardiovascular: RRR nl s1, s2 no m/r CBT <2 sec abd soft + BS nt/nd no guarding, no distension Musculoskeletal Exam: ARCOS x 4 without difficulty Strength Intact, ROM Intact Neurological: CN 2- 12 intact and full Full AROM x 4 + FNF Pt with mild somnulence. Pt with intermittent myoclonic jerking, non rhythmic, primarily upper extremities Psychological: Positive: Normal Response To Family Skin: Positive: no rash, no ecchymosis Vital Signs On Initial Exam: Initial Vitals Temp Pulse Resp BP Pulse Ox 98.9 F 89 20 125/88 99 12/05/18 12:18 12/05/18 12:18 12/05/18 12:18 12/05/18 12:18 12/05/18 12:18 Diagnostics - Vital Signs Vital Signs Temp Pulse Resp BP Pulse Ox 12/05/18 12:18 98.9 F 89 20 125/88 99 - Laboratory Lab Results: Lab Results 12/05/18 Range/Units 12:42 WBC 6.3 (3.5-10.8) 10^3/uL RBC 4.60 (3.70-4.87) 10^6 /uL Hgb 12.7 (12.0-16.0) g/dL Hct 39 (33-41) % MCV 84 (80-97) fL MCH 28 (27-31) pg MCHC 33 (31-36) g/dL RDW 14 (10.5-15) % Plt Count 176 (150-450) 10^3/uL MPV 8.4 (7.4-10.4) fL Neut % (Auto) 56.3 % Lymph % (Auto) 31.9 % [place] % (Auto) 7.6 % Eos % (Auto) 3.9 % Baso % (Auto) 0.3 % Absolute Neuts (auto) 3.6 (1.5-7.7) 10^3/ul Absolute Lymphs (auto) 2.0 (1.0-4.8) 10^3/ul Absolute Monos (auto) 0.5 (0-0.8) 10^3/ul Absolute Eos (auto) 0.2 (0-0.6) 10^3/ul Absolute Basos (auto) 0 (0-0.2) 10^3/ul Absolute Nucleated RBC 0 10^3/ul Nucleated RBC % 0.1 Result Diagrams: 12/05/18 12:42 12/05/18 12:42 Lab Statement: Any lab studies that have been ordered have been reviewed, and results considered in the medical decision making process. - Radiology Chest XR Radiology Interpretation Completed By: Radiologist Summary of Radiographic Findings: IMPRESSION: No active cardiopulmonary disease. Dr. Garrison has reviewed this report. - CT Brain CT CT Interpretation Completed By: Radiologist Summary of CT Findings: IMPRESSION: Negative unenhanced head CT. Dr. Garrison has reviewed this report. - EKG 13:36 Cardiac Rate: NL - at 66 bpm EKG Rhythm: Sinus Rhythm EKG Comparison: No Significant Change - compared to prior in April 2014. Re-Evaluation - Re-Evaluation First Eval Re-Evaluation Time: 14:26 Comment: Reviewed lab, CXR, and CT with pt and grandmother. Page to Neurology Dr Vargas's . Second Eval Re-Evaluation Time: 14:31 Comment: Discussed Dr. Vargas's recommendations with pt. Dr. Vargas will come see the pt. EEG awaiting urine tox screen - pt spilled first sample Third Eval Re-Evaluation Time: 14:34 Comment: Dr. Vargas, neurologist, at bedside. Fourth Eval Re-Evaluation Time: 15:18 Comment: Dr. Vargas reports to get urine, EEG, and other labs he added. Give pt another IVF bolus, and if all well she can be discharged home. Dr. Vargas will come back for re-eval. Fifth Eval Re-Evaluation Time: 16:12 Comment: Dr. 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 IV Depakote here. Rx Depakote ER tabs 1000mg Qhs. strict seizure precautions discussed. pt to f/u with Dr. Vargas 2-3 weeks. pt and grandmother comfortable and in agreement with plan Course/Dx - Course Course Of Treatment: Pt presents to by EMS s/p a witnessed seizure in [facility]. no h.o seizures. Pt with twitching and shaking since getting up this morning. pt in on Tamiflu for influenza Denies any ilicit substnace or OTC meds. Pt in recovery on suboxone. No injury from seizure. On exam, pt noted to have frequent, intermittent myoclonic jerking of upper ext. Will check labs , CT, EKG, urine, UDS, ETOH. seizure precautions - Diagnoses Provider Diagnoses: Juvenile myoclonic epilepsy - Physician Notifications Discussed Care Of Patient With: Ty Vargas Time Discussed With Above Provider: 14:27 Instructed by Provider To: Other - Discussed the case with Dr. Vargas, neurologist, who recommends an EEG and he will come see the pt in the ED. Discharge - Sign-Out/Discharge Documenting (check all that apply): Patient Departure Patient Received Moderate/Deep Sedation with Procedure: No - Discharge Plan Condition: Critical Disposition: HOME Prescriptions: Divalproex Sodium [Depakote ER] 1,000 mg PO QPM #30 tab.er.24h Patient Education Materials: New-Onset Seizure in Adults (ED) Referrals: Ty Vargas MD [Medical Doctor] - No Primary Care Phys,NOPCP [Primary Care Provider] - Additional Instructions: - Take seizure medication every night as prescribed- this medication will likely cause drowsiness - START FIRST DOSE TONIGHT -STOP TAKING the Tamiflu - Stay well hydrated. drink plenty of non-alcoholic, non-caffinated beverages - You have been diagnosed today with a seizure disorder. It is very important that you do not participate in any activity that you may injure yourself or someone else if you have a seizure - this includes driving, swimming, climbing heights, operating equiptment -Contact the neurology office, Dr. Vargas office to schedule a follow-up appointment in 2-3 weeks. If you have ANY other questions or concerns it is important you contact his office or return to the emergency department - Billing Disposition and Condition Condition: CRITICAL Disposition: Home - Attestation Statements Document Initiated by Scribe: Yes Documenting Scribe: Corine Heard Provider For Whom Scribe is Documenting (Include Credential): Jaimie Garrison MD Scribe Attestation: I, Corine Heard, scribed for Jaimie Garrison MD on 12/07/18 at 2050. Scribe Documentation Reviewed: Yes Provider Attestation: The documentation as recorded by the scribe, Corine Heard accurately reflects the service I personally performed and the decisions made by me, Jaimie Garrison MD Status of Scribe Document: Viewed
[2018-12-05 13:14] LABS: ALT 13 U/L (7-52); AST 15 U/L (13-39); Albumin 3.6 g/dL (3.2-5.2); Albumin/Globulin Ratio 1.3 (1-3); Alkaline Phosphatase 61 U/L (34-104); Anion Gap 4 mmol/L (2-11); BUN/Creatinine Ratio 13.3 (8-20); Blood Urea Nitrogen 8 mg/dL (6-24); CO2 Carbon Dioxide 27 mmol/L (22-32); Calcium 8.3 mg/dL (8.6-10.3); Chloride 110 mmol/L (101-111); EGFR African American 149.9 (>60); EGFR Non-African American 123.9 (>60); Globulin 2.8 g/dL (2-4); Glucose 98 mg/dL (70-100); Magnesium 2.1 mg/dL (1.9-2.7); Potassium 4.4 mmol/L (3.5-5.0); Sodium 141 mmol/L (135-145); Total Protein 6.4 g/dL (6.4-8.9)
[2018-12-05 13:16] LABS: Alcohol < 10 mg/dL (<10)
[2018-12-05 13:19] LABS: HCG Pregnancy 2.57 mIU/mL
[2018-12-05] MEDS ORDERED: NS 0.9% 500 ML* 500 ML IV ONE (15:18)
[2018-12-05 16:03] LABS: TSH (Thyroid Stimulating Horm) 0.85 mcIU/mL (0.34-5.60)
[2018-12-05 16:06] LABS: Urine Appearance Clear; Urine Bacteria 1+ (Absent); Urine Bilirubin Negative (Negative); Urine Blood 3+ (Negative); Urine Color Yellow; Urine Glucose Negative (Negative); Urine Ketones Negative (Negative); Urine Nitrite Negative (Negative); Urine Protein Negative (Negative); Urine Red Blood Cell Trace(0-2/hpf) (Absent); Urine Specific Gravity 1.009 (1.010-1.030); Urine Squamous Epithelial Cell Present (Absent); Urine Urobilinogen Negative (Negative); Urine White Blood Cell Trace(0-5/hpf) (Absent)
[2018-12-05 16:09] LABS: Free T4 0.97 ng/dL (0.61-1.12)
[2018-12-05 16:21] LABS: Barbiturates Urine Screen None Detected (None Detect); Benzodiazepine Urine Screen None Detected (None Detect); Urine Cannabinoids Screen None Detected (None Detect)
[2018-12-05] MEDS ORDERED: Valproic Acid IV(*) 500 MG in NS 0.9% 100 ML* 100 ML IVPB ONE (16:25)
[2018-12-05 17:56] VITALS: BP 131/79
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
--- NOTE | 2018-12-05 20:57 | EEG ---
ELECTROENCEPHALOGRAPHY: DATE OF STUDY: 12/05/18 - EMERGENCY DEPT. DATE READ: 12/05/18 ORDERED BY: Dr. Jaimie Garrison. CLINICAL PROBLEM: Ms. Ren is a 23-year-old female with history of myoclonus who had 1 episode of generalized seizure. This EEG was obtained to evaluate for epileptiform abnormalities or electrographic seizures. MEDICATIONS: 1. Suboxone. 2. Clonidine. 3. Gabapentin. 4. Doxepin. CLINICAL STATE: Waking and drowsy. REPORT: The most prominent features of this recording were abundant, generalized, polyspike, spike and slow wave epileptiform discharges with a frequency of 3-4 Hz lasting for 1-9 seconds. The morphology was maximal at frontal region at FP3 and F4 and the discharges were more prominent during drowsy state. There were some associated myoclonic jerks on EEG that correlated with the epileptiform discharges. The waking background otherwise showed appropriate organization with clearly defined anterior-posterior voltage and frequency gradients. There was a well- defined posterior dominant rhythm of 9 Hz which was symmetrical and showed normal reactivity. Hyperventilation and photic stimulation were not performed. There were no electrographic seizures. CLINICAL IMPRESSION: This is an abnormal waking and drowsy EEG due to the presence of abundant, generalized, polyspike, spike and slow wave epileptiform discharges with clinical manifestation of myoclonus. There is an area where the background was normal. 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 With further history, the patient has had myoclonic jerks for years, but never had any seizures. I discussed these findings with Dr. Garrison. We agreed to start Depakote 500 mg IV x1 now and to start Depakote extended release 1000 mg p.o. starting tonight. I will follow up with the patient as an outpatient in 3 to 4 weeks. [id number]/[facility] #: [id number] [facility]ENT[facility]
== END 2018-12-05 17:57 | disposition home or self-care (01) ==
LOC: ED 12:09
DX: G40.409 Other generalized epilepsy and epileptic syndromes, not intractable, without status epilepticus (principal); F17.210 Nicotine dependence, cigarettes, uncomplicated; Z88.0 Allergy status to penicillin; R55 Syncope and collapse
CPT/HCPCS: 36415; 70450; 71046; 80053; 80307; 80320; 81003; 81015; 82140; 82607; 83735; 84439; 84443; 84702; 85025; 87077; 87086; 87186; 93005; 95819; 96361; 96365; 99285; G0480

== ENCOUNTER 2019-07-07 11:23 | Emergency (ER) | payer OTHER ==
[2019-07-07] MEDS ORDERED: Tetan/Diph/Pertus SYR(Tdap)* 0.5 ML SYR(BOOSTRIX) use SYR contains LATEX IM ONE (11:46)
--- NOTE | 2019-07-07 12:45 | ED ---
Lower Extremity - HPI Summary HPI Summary: Patient is a 24-year-old female who presents to emergency department for puncture wound to left foot. Patient states yesterday she was helping her parents in their garage when she stepped on a long nail. Patient states nail went through her shoe and into her left foot. Patient removed her nail but is on sure if nail was removed in its entirety. Patient is unaware of her last tetanus immunization. Patient states pain is worse today and appears swollen. Symptoms are mild in severity. Touching her makes symptoms worse. Rest makes symptoms better. No significant past medical history. - History of Current Complaint Chief Complaint: EDExtremityLower Stated Complaint: STEPPED ON NAIL PER PT Time Seen by Provider: 07/07/19 11:46 Hx Obtained From: Patient Hx Last Menstrual Period: IUD Pain Intensity: 5 - Allergies/Home Medications Allergies/Adverse Reactions: Allergies Allergy/AdvReac Type Severity Reaction Status Date / Time Penicillins Allergy Anaphylatic Verified 12/02/18 15:41 Shock PMH/Surg Hx/FS Hx/Imm Hx Previously Healthy: Yes Endocrine/Hematology History: Denies: Hx Diabetes, Hx Thyroid Disease Cardiovascular History: Denies: Hx Hypertension Respiratory History: Reports: Hx Pneumonia - 2 YEARS AGO Denies: Hx Asthma, Hx Chronic Obstructive Pulmonary Disease (COPD) GI History: Denies: Hx Ulcer History: Denies: Hx Renal Disease Sensory History: Reports: Hx Contacts or Glasses Opthamlomology History: Reports: Hx Contacts or Glasses Psychiatric History: Reports: Hx Anxiety, Hx Depression - was taking zoloft, disc. managed by PCP, Hx Substance Abuse Infectious Disease History: No Infectious Disease History: Denies: Hx Clostridium Difficile, Hx Hepatitis, Hx Human Immunodeficiency Virus (HIV), Hx of Known/Suspected MRSA, Hx Shingles, Hx Tuberculosis, Hx Known/ Suspected VRE, Hx Known/Suspected VRSA, History Other Infectious Disease, Traveled Outside the [place] in Last 30 Days - Family History Known Family History: Positive: Other - mother - history of strep throat, Non- Contributory Negative: Cardiac Disease Family History: no cardio vascular issues in family lineage. No Fhx of seizures. - Social History Occupation: Unemployed Lives: With Family Alcohol Use: None Substance Use Type: Reports: Prescribed Substance Use Comment - Amount & Last Used: clean since december 30, 2017 Hx Tobacco Use: Yes Smoking Status (MU): Heavy Every Day Tobacco Smoker Type: Cigarettes Amount Used/How Often: 1/2 PPD Have You Smoked in the Last Year: No Review of Systems Constitutional: Negative Negative: Fever Positive: Other - pain to left foot Positive: Other - Puncture to left foot Neurological: Negative Negative: Weakness, Paresthesia, Numbness All Other Systems Reviewed And Are Negative: Yes Physical Exam Triage Information Reviewed: Yes Vital Signs On Initial Exam: Initial Vitals Temp Pulse Resp BP Pulse Ox 99.2 F 85 16 116/66 100 07/07/19 11:32 07/07/19 11:32 07/07/19 11:32 07/07/19 11:32 07/07/19 11:32 Vital Signs Reviewed: Yes Appearance: Positive: Well-Appearing - Pt. sitting on bed in NAD. Friend present. Skin: Positive: Warm, Dry Head/Face: Positive: Normal Head/Face Inspection Eyes: Positive: Normal, EOMI Neck: Positive: Supple Musculoskeletal: Positive: Other - Small puncture wound noted to distal aspect of left foot on the dorsal aspect. Tender with mild edema. No drainage. No bony tenderness. Pain with flexion and extension of first and second toe. No sensory deficits. Neurological: Positive: Normal, CN Intact II-III Psychiatric: Positive: Affect/Mood Appropriate Procedures - Sedation Patient Received Moderate/Deep Sedation with Procedure: No Diagnostics - Vital Signs Vital Signs Temp Pulse Resp BP Pulse Ox 07/07/19 11:32 99.2 F 85 16 116/66 100 - Laboratory Lab Statement: Any lab studies that have been ordered have been reviewed, and results considered in the medical decision making process. Lower Extremity Course/Dx - Course Course Of Treatment: Patient presenting with puncture wound to left foot. Given increased pain and edema x-ray was ordered to rule out foreign body. X- ray shows soft tissue edema without foreign body or fracture, reading per radiology. Tetanus was updated. We'll check patient with Cipro to cover pseudomonas and she was wearing shoes. Advised to keep wound clean and dry. Ice and elevate intermittently. Follow-up with PCP for wound check in 2-3 days. To return to the ER for increased pain, swelling, drainage or if concerned. Patient understands and agrees with plan. - Diagnoses Differential Diagnosis/HQI/PQRI: Positive: Foreign Body, Fracture (Closed), Puncture Wound, Sprain, Strain Provider Diagnoses: Puncture wound of foot Discharge ED - Sign-Out/Discharge Documenting (check all that apply): Patient Departure - Discharge Plan Condition: Good Disposition: HOME Prescriptions: Ciprofloxacin TAB* [Cipro 250 MG Tab*] 250 mg PO BID #14 tab Patient Education Materials: Puncture Wound (ED) Forms: *Work Release Referrals: [facility] [Outside] Additional Instructions: Follow up with PCP wound wound check in 2-3 days Take antibiotic as directed Ice and elevate foot Tylenol or Motrin for pain as directed REturn to ER for increased redness, swelling, drainage or if concerned - Billing Disposition and Condition Condition: GOOD Disposition: Home
[2019-07-07 13:00] VITALS: BP 120/65
== END 2019-07-07 12:57 | disposition home or self-care (01) ==
LOC: ED 11:23
DX: S91.332A Puncture wound without foreign body, left foot, initial encounter (principal); W22.8XXA Striking against or struck by other objects, initial encounter; Y93.H3 Activity, building and construction; Y92.008 Other place in unspecified non-institutional (private) residence as the place of occurrence of the external cause; F17.210 Nicotine dependence, cigarettes, uncomplicated; Z88.0 Allergy status to penicillin
CPT/HCPCS: 90471; 90715; 99282